=== PATIENT | female | born 1990 | race Hispanic/Latino ===

== ENCOUNTER 2018-01-31 06:31 | Emergency (ER) | payer SELFPAY ==
--- NOTE | 2018-01-31 06:40 | EDPHYS ---
Physician Documentation [facility] Name: Jeanne Pascual Age: 28 yrs Sex: Female : 1990 Arrival Date: 01/31/2018 Time: 06:32 Bed 8 Private MD: ED Physician Charli Mckee HPI: 01/31 06:45 This 28 yrs old Female presents to ER via Ambulatory with complaints of Ear snw Pain, Jaw Pain. 06:45 The patient presents with pain, that is acute. The complaints affect the right ear, snw right caodaism and right jaw. Onset: The symptoms/episode began/occurred suddenly, 4 day(s) ago, and became worse and became persistent. Modifying factors: The symptoms are alleviated by nothing, the symptoms are aggravated by touching. Associated signs and symptoms: Pertinent negatives: fever, lightheadedness, nausea, sore throat. Severity of symptoms: At their worst the symptoms were moderate in the emergency department the symptoms are unchanged. It is unknown whether or not the patient has had similar symptoms in the past. It is unknown whether or not the patient has recently seen a physician. encouraged to f/u with dentist RENATE. 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 - Social history:: Smoking status: Patient/guardian denies using tobacco, Patient/guardian denies using alcohol, street drugs. - Ebola Screening: : No symptoms or risks identified at this time. ROS: 06:43 Constitutional: Negative for fever, chills, and weight loss, Eyes: Negative for injury, snw pain, redness, and discharge, Neck: Negative for injury, pain, and swelling, Cardiovascular: Negative for chest pain, palpitations, and edema, Respiratory: Negative for shortness of breath, cough, wheezing, and pleuritic chest pain, Abdomen/GI: Negative for abdominal pain, nausea, vomiting, diarrhea, and constipation, Back: Negative for injury and pain, : Negative for injury, bleeding, discharge, and swelling, MS/Extremity: Negative for injury and deformity, Skin: Negative for injury, rash, and discoloration, Psych: Negative for depression, anxiety, suicide ideation, homicidal ideation, and hallucinations. 06:43 ENT: Positive for ear pain, right jaw pain. 06:43 Neuro: Positive for headache. Exam: 06:42 Constitutional: This is a well developed, well nourished patient who is awake, alert, snw and in no acute distress. Eyes: Pupils equal round and reactive to light, extra-ocular motions intact. Lids and lashes normal. Conjunctiva and sclera are non-icteric and not injected. Cornea within normal limits. Periorbital areas with no swelling, redness, or edema. Neck: Trachea midline, no thyromegaly or masses palpated, and no cervical lymphadenopathy. Supple, full range of motion without nuchal rigidity, or vertebral point tenderness. No Meningismus. Chest/axilla: Normal chest wall appearance and motion. Nontender with no deformity. No lesions are appreciated. Cardiovascular: Regular rate and rhythm with a normal S1 and S2. No gallops, murmurs, or rubs. Normal PMI, no JVD. No pulse deficits. Respiratory: Lungs have equal breath sounds bilaterally, clear to auscultation and percussion. No rales, rhonchi or wheezes noted. No increased work of breathing, no retractions or nasal flaring. Abdomen/GI: Soft, non-tender, with normal bowel sounds. No distension or tympany. No guarding or rebound. No evidence of tenderness throughout. Back: No spinal tenderness. No costovertebral tenderness. Full range of motion. Skin: Warm, dry with normal turgor. Normal color with no rashes, no lesions, and no evidence of cellulitis. MS/ Extremity: Pulses equal, no cyanosis. Neurovascular intact. Full, normal range of motion. Neuro: Awake and alert, GCS 15, oriented to person, place, time, and situation. Cranial nerves II-XII grossly intact. Motor strength 5/5 in all extremities. Sensory grossly intact. Cerebellar exam normal. Normal gait. 06:42 Head/face: Noted is tenderness, that is moderate, of the lower right third molar. 06:42 ENT: TM's: are normal, Nose: is normal, Mouth: is normal, Dental exam: impacted appearing right wisdom tooth with caries and tenderness. Vital Signs: 06:42 BP 130 / 76; Pulse 78; Resp 18 S; Temp 98.8(O); Pulse Ox 98% on R/A; Weight 81.65 kg bb (R); Height 5 ft. 1 in. (154.94 cm) (R); Pain 10/10; 06:42 Body Mass Index 34.01 (81.65 kg, 154.94 cm) bb MDM: 06:38 Patient medically screened. snw 06:44 Data reviewed: vital signs, nurses notes. Data interpreted: Pulse oximetry: on room air snw is 98 %. Interpretation: normal. Counseling: I had a detailed discussion with the patient and/or guardian regarding: the historical points, exam findings, and any diagnostic results supporting the discharge/admit diagnosis, the presence of at least one elevated blood pressure reading (>120/80) during this emergency department visit, the need for outpatient follow up, to return to the emergency department if symptoms worsen or persist or if there are any questions or concerns that arise at home. Special discussion: Based on the history and exam findings, there is no indication for further emergent testing or inpatient evaluation. I discussed with the patient/guardian the need to see a dentist for further evaluation of the symptoms. I discussed with the patient/guardian the need to see the primary care provider for further evaluation of the symptoms. Administered Medications: 06:50 Drug: Clindamycin 600 mg Route: IM; Site: right gluteus; ea 07:07 Follow up: Response: No adverse reaction ea 06:50 Drug: [place] 5 mg-325 mg 1 tabs Route: PO; ea 07:07 Follow up: Response: No adverse reaction; Pain is decreased ea Disposition: 19:10 Co-signature as Attending Physician, Charli Mckee MD. Disposition: 01/31/18 06:39 Discharged to Home. Impression: Jaw pain, Dental caries, unspecified. - Condition is Stable. - Discharge Instructions: Dental Caries, Adult, Dental Pain, Diet and Dental Disease, Heat Therapy, Dental Extraction, Care After. - Prescriptions for Clindamycin HCl 150 mg Oral Capsule - take 1 capsule by ORAL route every 6 hours for 10 days; 40 capsule. Diclofenac Sodium 75 mg Oral Tablet Sustained Release - take 1 tablet by ORAL route 2 times per day; 30 tablet. - Medication Reconciliation Form, Thank You Letter, Antibiotic Education, Prescription Opioid Use, Work release form form. - Follow up: Private Physician; When: Today; Reason: Recheck today's complaints, Continuance of care, Re-evaluation by your physician. Follow up: Emergency Department; When: As needed; Reason: Worsening of condition. Signatures: Supriya Cardoza, MINE SAFETY ENGINEER-C MINE SAFETY ENGINEER-Csnw Leticia Mccallum RN RN bb Antunez, Elena, RN RN ea Starr, Gregory, MD MD gs Corrections: (The following items were deleted from the chart) 07:10 06:39 01/31/2018 06:39 Discharged to Home. Impression: Jaw pain; Dental caries, ea unspecified. Condition is Stable. Forms are Medication Reconciliation Form, Thank You Letter, Antibiotic Education, Prescription Opioid Use. Follow up: Private Physician; When: Today; Reason: Recheck today's complaints, Continuance of care, Re-evaluation by your physician. Follow up: Emergency Department; When: As needed; Reason: Worsening of condition. snw
[2018-01-31] MEDS ORDERED: HYDROCODONE/APAP 5/325 MG TAB ONE (06:45)
[2018-01-31] MEDS ORDERED: CLINDAMYCIN 600MG/D5W 600 MG/50 ML BAG IV ONE (06:47)
--- NOTE | 2018-01-31 07:11 | ER ---
Nurse's Notes [facility] Name: Jeanne Pascual Age: 28 yrs Sex: Female : 1990 Arrival Date: 01/31/2018 Time: 06:32 Bed 8 Private MD: Diagnosis: Jaw pain;Dental caries, unspecified Presentation: 01/31 06:40 Presenting complaint: Patient states: she is having right sided jaw-pain radiating to bb her right ear since Wednesday denies any trauma. Transition of care: patient was not received from another setting of care. Onset of symptoms was January 28, 2018. Risk Assessment: Do you want to hurt yourself or someone else? Patient reports no desire to harm self or others. Initial Sepsis Screen: Does the patient meet any 2 criteria? No. Patient's initial sepsis screen is negative. Does the patient have a suspected source of infection? No. Patient's initial sepsis screen is negative. Care prior to arrival: None. 06:40 Method Of Arrival: Ambulatory bb 06:40 Acuity: ANGELA 5 bb Triage Assessment: 06:47 General: Appears in no apparent distress. Behavior is calm, cooperative. Pain: ak1 Complains of pain in right jaw and right pentecostal and right ear and lower right third molar and mouth. EENT: Reports pain in ear that radiates to jaw. Neuro: Level of Consciousness is awake, alert, obeys commands, Oriented to person, place, time, situation, Seafood Clerk are equal bilaterally Moves all extremities. Gait is steady, Speech is normal, Facial symmetry appears normal. Cardiovascular: No deficits noted. Respiratory: No deficits noted. GI: No signs and/or symptoms were reported involving the gastrointestinal system. : No signs and/or symptoms were reported regarding the genitourinary system. Derm: No signs and/or symptoms reported regarding the dermatologic system. Musculoskeletal: No signs and/or symptoms reported regarding the musculoskeletal system. 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 - Social history:: Smoking status: Patient/guardian denies using tobacco, Patient/guardian denies using alcohol, street drugs. - Ebola Screening: : No symptoms or risks identified at this time. Screenin:46 Abuse screen: Denies threats or abuse. Denies injuries from another. Nutritional ak1 screening: No deficits noted. Tuberculosis screening: No symptoms or risk factors identified. Fall Risk Assessment: 06:48 Reassessment: Patient appears in no apparent distress at this time. No changes from ak1 previously documented assessment. see triage assessment. 06:57 Reassessment: Patient and/or family updated on plan of care and expected duration. Pain ea level reassessed. Patient is alert, oriented x 3, equal unlabored respirations, skin warm/dry/pink. Awaiting on shot time. 07:05 Reassessment: Patient and/or family updated on plan of care and expected duration. Pain ea level reassessed. Patient is alert, oriented x 3, equal unlabored respirations, skin warm/dry/pink. Discharge instructions given to patient verbalized the understanding of instructions given to patient. Vital Signs: 06:42 BP 130 / 76; Pulse 78; Resp 18 S; Temp 98.8(O); Pulse Ox 98% on R/A; Weight 81.65 kg bb (R); Height 5 ft. 1 in. (154.94 cm) (R); Pain 10/10; 06:42 Body Mass Index 34.01 (81.65 kg, 154.94 cm) bb ED Course: 06:32 Patient arrived in ED. ds1 06:32 [facility] snw 06:32 Charli Mckee MD is Attending Physician. snw 06:41 Triage completed. bb 06:42 Arm band placed on Patient placed in an exam room, on a stretcher, on pulse oximetry. bb Family accompanied patient. 06:46 Patient has correct armband on for positive identification. Bed in low position. Call ak1 light in reach. Side rails up X 1. Pulse ox on. NIBP on. 06:46 No provider procedures requiring assistance completed. Patient did not have IV access ak1 during this emergency room visit. 06:49 Awaiting: shot time. ak1 Administered Medications: 06:50 Drug: Clindamycin 600 mg Route: IM; Site: right gluteus; ea 07:07 Follow up: Response: No adverse reaction ea 06:50 Drug: [place] 5 mg-325 mg 1 tabs Route: PO; ea 07:07 Follow up: Response: No adverse reaction; Pain is decreased ea Outcome: 06:39 Discharge ordered by MD. crawford 07:06 Condition: good ea 07:06 Discharge instructions given to patient, Instructed on discharge instructions, follow up and referral plans. medication usage, Demonstrated understanding of instructions, follow-up care, medications, Prescriptions given X 2. 07:10 Discharged to home ambulatory, with significant other. ea 07:10 Patient left the ED. ea Signatures: Supriya Cardoza, LEAD ENGINEER-C LEAD ENGINEER-Csnw Wendy Eric ds1 Leticia Mccallum RN RN Carleen Lazo RN RN ak1 Shirin Aden RN RN ea
[2018-01-31 07:15] VITALS: BP 130/76; TEMP 98.8; O2SAT 98
== END 2018-01-31 07:10 | disposition home or self-care (01) ==
LOC: ER 06:31
DX: R68.84 Jaw pain (principal); K02.9 Dental caries, unspecified; Z88.1 Allergy status to other antibiotic agents
CPT/HCPCS: 96372; 99283

== ENCOUNTER 2018-04-12 19:57 | Emergency (ER) | payer SELFPAY ==
[2018-04-12 22:11] LABS: Absolute Lymphocytes (CBC) 2.1 K/uL (0.7-4.9); Absolute Monocytes 0.4 K/uL (0.1-1.3); Absolute Neutrophil 4.5 K/uL (1.8-8.0); Basophils % 0.6 % (0-1.3); Eosinophils % 2.1 % (0-4.4); Hematocrit 38.2 % (36.0-45.0); Lymphocytes % 28.7 % (15.3-44.8); MCH 31.2 pg (27.0-35.0); MCV 88.6 fL (80-100); Monocytes % 6.1 % (3.3-12.3); RBC Red Blood Cell Count 4.32 M/uL (3.86-4.86)
[2018-04-12 22:11] LABS: Urine Blood TRACE (NEG); Urine Glucose NEGATIVE (NEG); Urine Protein NEGATIVE (NEG); Urine pH 5.5 (5.0-7.0)
[2018-04-12 22:16] LABS: Urine Bacteria <20 /HPF (<20); Urine Culture Reflex Order NOT NEEDED; Urine RBC <5 /HPF (NONE SEEN)
[2018-04-12 22:28] LABS: ALT/SGPT 34 U/L (12-78); AST/SGOT 16 U/L (15-37); Albumin 3.7 g/dL (3.4-5.0); Alkaline Phosphatase 99 U/L (45-117); BUN Blood Urea Nitrogen 11 mg/dL (7-18); Bicarbonate 25 mmol/L (21-32); Bilirubin Direct 0.1 mg/dL (0-0.2); Bilirubin Total 0.3 mg/dL (0.2-1.0); Glucose Level 108 mg/dL (74-106); Lipase 190 U/L (73-393); Potassium 3.8 mmol/L (3.5-5.1); Sodium Level 141 mmol/L (136-145)
--- NOTE | 2018-04-13 01:54 | EDPHYS ---
Physician Documentation [facility] Name: Jeanne Pascual Age: 28 yrs Sex: Female : 1990 Arrival Date: 04/12/2018 Time: 20:01 Bed 17 Private MD: ED Physician Emily Ramirez HPI: 04/12 21:21 This 28 yrs old Female presents to ER via Ambulatory with complaints of Back ma2 Pain, Nausea, Diarrhea. 21:21 The patient presents with pain that is acute. Onset: The symptoms/episode ma2 began/occurred gradually, 1 day(s) ago. The pain does not radiate. Associated signs and symptoms: Pertinent positives: chest pain, dysuria, hematuria, bowel incontinence, Pertinent negatives: abdominal pain. Severity of symptoms: At their worst the symptoms were moderate, in the emergency department the symptoms are unchanged. The patient has not experienced similar symptoms in the past. 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 - Social history:: Smoking status: Patient/guardian denies using tobacco, Patient/guardian denies using alcohol, street drugs, The patient lives with family. - Ebola Screening: : Patient denies travel to an Ebola-affected area in the 21 days before illness onset. - Family history:: not pertinent. ROS: 21:21 Constitutional: Negative for fever, chills, and weight loss, Cardiovascular: Negative ma2 for chest pain, palpitations, and edema, : Negative for injury, bleeding, discharge, and swelling, Skin: Negative for injury, rash, and discoloration. 21:21 Abdomen/GI: Positive for abdominal pain. 21:21 Abdomen/GI: Positive for vomiting, Negative for nausea, rectal bleeding, flatulence. 21:21 : Positive for flank pain, Negative for urinary symptoms, vaginal itching, missed period, acute changes. 21:21 All other systems are negative. Exam: 21:21 Constitutional: This is a well developed, well nourished patient who is awake, alert, ma2 and in no acute distress. Head/Face: Normocephalic, atraumatic. ENT: Nares patent. No nasal discharge, no septal abnormalities noted. Tympanic membranes are normal and external auditory canals are clear. Oropharynx with no redness, swelling, or masses, exudates, or evidence of obstruction, uvula midline. Mucous membranes moist. Chest/axilla: Normal chest wall appearance and motion. Nontender with no deformity. No lesions are appreciated. Cardiovascular: Regular rate and rhythm with a normal S1 and S2. No gallops, murmurs, or rubs. Normal PMI, no JVD. No pulse deficits. Respiratory: Lungs have equal breath sounds bilaterally, clear to auscultation and percussion. No rales, rhonchi or wheezes noted. No increased work of breathing, no retractions or nasal flaring. Skin: Warm, dry with normal turgor. Normal color with no rashes, no lesions, and no evidence of cellulitis. MS/ Extremity: Pulses equal, no cyanosis. Neurovascular intact. Full, normal range of motion. Psych: Awake, alert, with orientation to person, place and time. Behavior, mood, and affect are within normal limits. 21:21 Abdomen/GI: Inspection: abdomen appears normal, Palpation: moderate abdominal tenderness, in the right upper quadrant, Indicators: Crowley's sign is positive, Hernia: not appreciated. 21:21 Back: CVA tenderness, that is mild, is noted on the right. 04/13 00:00 Neuro: Orientation: is normal, Mentation: is normal, Motor: is normal, moves all fours, pm1 Gait: is steady, at a normal pace, without difficulty. Vital Signs: 04/12 20:15 BP 136 / 94; Pulse 92; Resp 20; Temp 97.9(TE); Pulse Ox 97% on R/A; Weight 81.65 kg aj1 (R); Height 5 ft. 1 in. (154.94 cm) (R); Pain 7/10; 22:16 BP 114 / 70; Pulse 74; Resp 16 S; Pulse Ox 97% on R/A; jd3 23:10 BP 100 / 55; Pulse 70; Resp 18; Pulse Ox 98% on R/A; mt 23:52 BP 102 / 55; Pulse 74; Resp 16; Pulse Ox 98% on R/A; mt 04/13 00:35 BP 99 / 56; Pulse 72; Resp 19 S; Pulse Ox 97% on R/A; jd3 01:29 BP 99 / 66; Pulse 75; Resp 15 S; Pulse Ox 98% on R/A; jd3 04/12 20:15 Body Mass Index 34.01 (81.65 kg, 154.94 cm) aj1 MDM: 04/12 20:49 Patient medically screened. wi2 21:21 Differential diagnosis: Cholelithiasis chronic back pain, Pyelonephritis sprain. wi2 04/13 01:09 Data reviewed: vital signs. Data interpreted: Pulse oximetry: on room air is 97 %. pm1 Interpretation: normal. 01:09 ED course: Pending Vrad U/S results. pm1 01:52 Counseling: I had a detailed discussion with the patient and/or guardian regarding: the pm1 historical points, exam findings, and any diagnostic results supporting the discharge/admit diagnosis, lab results, radiology results, the need for outpatient follow up, to return to the emergency department if symptoms worsen or persist or if there are any questions or concerns that arise at home. 04/12 21:21 Order name: Basic Metabolic Panel; Complete Time: 23:09 wi2 04/12 21:21 Order name: CBC with Diff; Complete Time: 23:09 wi2 04/12 21:21 Order name: Hepatic Function; Complete Time: 23:09 wi2 04/12 21:21 Order name: Lipase; Complete Time: 23:09 wi2 04/12 21:21 Order name: Urine Microscopic Only; Complete Time: 23:09 wi2 04/12 21:21 Order name: IV Saline Lock; Complete Time: 22:18 wi2 04/12 21:21 Order name: Labs collected and sent; Complete Time: 22:18 wi2 04/12 21:21 Order name: Urine Dipstick-Ancillary (obtain specimen); Complete Time: 22:18 [facility] 04/12 21:21 Order name: US Abdomen Limited [facility] 04/12 21:21 Order name: Test, Serum; Complete Time: 23:09 wi2 04/12 22:02 Order name: Urine Dipstick--Ancillary (enter results) [facility] 04/12 22:02 Order name: Urine --Ancillary (enter results) [facility] Administered Medications: 02:12 Drug: GI Cocktail without - (Maalox Suspension 30 ml, Lidocaine Liquid 2 % 15 jd3 ml) Route: PO; 02:12 Follow up: Response: No adverse reaction jd3 Disposition: 04/13/18 01:53 Discharged to Home. Impression: Unspecified abdominal pain. - Condition is Stable. - Discharge Instructions: Abdominal Pain, Adult. - Prescriptions for Pepcid 20 mg Oral Tablet - take 1 tablet by ORAL route every 12 hours for 10 days; 20 tablet. - Medication Reconciliation Form, Thank You Letter, Antibiotic Education, Prescription Opioid Use, Work release form form. - Follow up: Emergency Department; When: As needed; Reason: Worsening of condition. Follow up: Private Physician; When: 2 - 3 days; Reason: Recheck today's complaints, Continuance of care, Re-evaluation by your physician. - Problem is new. - Symptoms have improved. Signatures: Dispatcher [employer] [facility] Raya Jordan RN RN aj1 Dylan Richards NP CEREAL MILLER pm1 Bandar Huitron RN RN jd3 Emily Ramirez MD MD ma2 Corrections: (The following items were deleted from the chart) 04/12 22:15 21:21 Creatinine for Radiology+C.LAB.BRZ ordered. [facility] 04/13 02:25 01:53 04/13/2018 01:53 Discharged to Home. Impression: Unspecified abdominal pain. jd3 Condition is Stable. Forms are Medication Reconciliation Form, Thank You Letter, Antibiotic Education, Prescription Opioid Use. Follow up: Emergency Department; When: As needed; Reason: Worsening of condition. Follow up: Private Physician; When: 2 - 3 days; Reason: Recheck today's complaints, Continuance of care, Re-evaluation by your physician. Problem is new. Symptoms have improved. pm1
--- NOTE | 2018-04-13 01:54 | ER ---
Nurse's Notes [facility] Name: Jeanne Pascual Age: 28 yrs Sex: Female : 1990 Arrival Date: 04/12/2018 Time: 20:01 Bed 17 Private MD: Diagnosis: Unspecified abdominal pain Presentation: 04/12 20:13 Presenting complaint: Patient states: She's been having back pain since yesterday aj1 morning, and now the pain is wrapping around to her right side. Patient also reports diarrhea, a temperature of 99.1 and vomiting once this morning. Patient reports urinary frequency, denies dysuria. Transition of care: patient was not received from another setting of care. Onset of symptoms was April 11, 2018. Risk Assessment: Do you want to hurt yourself or someone else? Patient reports no desire to harm self or others. Initial Sepsis Screen: Does the patient meet any 2 criteria? No. Patient's initial sepsis screen is negative. Does the patient have a suspected source of infection? No. Patient's initial sepsis screen is negative. Care prior to arrival: None. 20:13 Method Of Arrival: Ambulatory aj1 20:13 Acuity: ANGELA 3 aj1 Triage Assessment: 20:15 General: Appears in no apparent distress. uncomfortable, Behavior is calm, cooperative, aj1 appropriate for age. Pain: Complains of pain in back and anterior aspect of right lateral abdomen Pain currently is 7 out of 10 on a pain scale. Neuro: Level of Consciousness is awake, alert, obeys commands. Cardiovascular: Patient's skin is warm and dry. Respiratory: Airway is patent Respiratory effort is even, unlabored, Respiratory pattern is regular, symmetrical. Musculoskeletal: Range of motion: intact in all extremities. 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 - Social history:: Smoking status: Patient/guardian denies using tobacco, Patient/guardian denies using alcohol, street drugs, The patient lives with family. - Ebola Screening: : Patient denies travel to an Ebola-affected area in the 21 days before illness onset. - Family history:: not pertinent. Screenin:58 Abuse screen: Denies threats or abuse. Nutritional screening: No deficits noted. jd3 Tuberculosis screening: No symptoms or risk factors identified. Fall Risk Ambulatory Aid- None/Bed Rest/Nurse Assist (0 pts). Gait- Normal/Bed Rest/Wheelchair (0 pts) Mental Status- Oriented to own ability (0 pts). Total Kowalski Fall Scale indicates No Risk (0-24 pts). Assessment: 20:59 General: Appears in no apparent distress. uncomfortable, Behavior is calm, cooperative, jd3 appropriate for age. Pain: Complains of pain in back Pain radiates to abdomen Quality of pain is described as sharp, Is continuous, Also complains of nausea. Neuro: Level of Consciousness is awake, alert, obeys commands, Oriented to person, place, time, situation, Appropriate for age. Cardiovascular: Capillary refill < 3 seconds Patient's skin is warm and dry. Respiratory: Airway is patent Respiratory effort is even, unlabored, Respiratory pattern is regular, symmetrical. GI: Abdomen is round non-distended, Bowel sounds present X 4 quads. Abd is soft and non tender X 4 quads. Reports diarrhea, nausea, vomiting. : Reports urgency. EENT: No signs and/or symptoms were reported regarding the EENT system. Derm: Skin is intact, Skin is dry, Skin is normal, Skin temperature is warm. Musculoskeletal: Circulation, motion, and sensation intact. Range of motion: intact in all extremities. 22:16 Reassessment: Patient appears in no apparent distress at this time. Patient and/or jd3 family updated on plan of care and expected duration. Pain level reassessed. Patient is alert, oriented x 3, equal unlabored respirations, skin warm/dry/pink. 04/13 00:34 Reassessment: Patient appears in no apparent distress at this time. Patient and/or jd3 family updated on plan of care and expected duration. Pain level reassessed. Patient is alert, oriented x 3, equal unlabored respirations, skin warm/dry/pink. 01:29 Reassessment: Patient appears in no apparent distress at this time. Patient and/or jd3 family updated on plan of care and expected duration. Pain level reassessed. Patient is alert, oriented x 3, equal unlabored respirations, skin warm/dry/pink. 02:24 Reassessment: Patient appears in no apparent distress at this time. Patient and/or jd3 family updated on plan of care and expected duration. Pain level reassessed. Patient is alert, oriented x 3, equal unlabored respirations, skin warm/dry/pink. Vital Signs: 04/12 20:15 BP 136 / 94; Pulse 92; Resp 20; Temp 97.9(TE); Pulse Ox 97% on R/A; Weight 81.65 kg aj1 (R); Height 5 ft. 1 in. (154.94 cm) (R); Pain 7/10; 22:16 BP 114 / 70; Pulse 74; Resp 16 S; Pulse Ox 97% on R/A; jd3 23:10 BP 100 / 55; Pulse 70; Resp 18; Pulse Ox 98% on R/A; mt 23:52 BP 102 / 55; Pulse 74; Resp 16; Pulse Ox 98% on R/A; mt 04/13 00:35 BP 99 / 56; Pulse 72; Resp 19 S; Pulse Ox 97% on R/A; jd3 01:29 BP 99 / 66; Pulse 75; Resp 15 S; Pulse Ox 98% on R/A; jd3 04/12 20:15 Body Mass Index 34.01 (81.65 kg, 154.94 cm) aj1 ED Course: 04/12 20:01 Patient arrived in ED. ds1 20:14 Triage completed. aj1 20:15 Arm band placed on Patient placed in waiting room, Patient notified of wait time. aj1 20:49 Emily Ramirez MD is Attending Physician. ma2 20:52 Bandar Huitron RN is Primary Nurse. jd3 20:59 Patient has correct armband on for positive identification. Bed in low position. Call jd3 light in reach. Side rails up X 1. Adult w/ patient. 21:47 US Abdomen Limited In Process Unspecified. EDMS 21:52 Dylan Richards NP is PHCP. pm1 22:02 Inserted saline lock: 20 gauge in right antecubital area, using aseptic technique. jd3 Blood collected. placed by Shirin DAVIES. 04/13 02:23 No provider procedures requiring assistance completed. IV discontinued, intact, jd3 bleeding controlled, No redness/swelling at site. Pressure dressing applied. Administered Medications: 02:12 Drug: GI Cocktail without - (Maalox Suspension 30 ml, Lidocaine Liquid 2 % 15 jd3 ml) Route: PO; 02:12 Follow up: Response: No adverse reaction jd3 Outcome: 01:53 Discharge ordered by . pm1 02:24 Discharged to home ambulatory. jd3 02:24 Condition: stable 02:24 Discharge instructions given to patient, Instructed on discharge instructions, follow up and referral plans. medication usage, Demonstrated understanding of instructions, follow-up care, medications, Prescriptions given X 1. 02:25 Patient left the ED. jd3 Signatures: Dispatcher [employer] EDMS Raya Jordan RN RN aj1 Wendy Eric ds1 Dylan Richards, AMITA TIMBER MANAGEMENT ASSISTANT pm1 Peace Jeffrey mt, Jonathon, RN RN jd3 Emily Ramirez MD MD ma2 Corrections: (The following items were deleted from the chart) 04/12 22:23 22:02 Inserted saline lock: 20 gauge in right antecubital area, using aseptic jd3 technique. Blood collected. jd3
[2018-04-13] MEDS ORDERED: LIDOCAINE VISCOUS 2% SOLN 15 ML UDC ONE (02:12)
[2018-04-13] MEDS ORDERED: MAGNES/ALUMIN/SIMET 30ML UCUP ONE (02:14)
[2018-04-13 02:29] VITALS: TEMP 97.9
[2018-04-13 02:35] VITALS: BP 99/66; O2SAT 98
--- NOTE | 2018-04-13 06:41 | RAD REPORT ---
EXAM DESCRIPTION: US - Abdomen Exam Limited - 04/12/2018 9:46 pm CLINICAL HISTORY: Abdominal pain, right upper quadrant pain A preliminary report was provided at the time of the study and reviewed prior to final report. COMPARISON: CT study April 2017 FINDINGS: Gallbladder is contracted. Patient was not fasting for the examination. No gross evidence for gallstones or sludge. There is no true wall thickening suspected or pericholecystic fluid. No common duct stone or biliary tree dilatation identified. IMPRESSION: Contracted gallbladder in a nonfasting patient. No stones or sludge identified. No biliary tree dilatation. If the patient remains symptomatic, repeat examination can be performed at a time when the patient is fully fasting.
== END 2018-04-13 02:25 | disposition home or self-care (01) ==
LOC: ER 19:57
DX: R10.9 Unspecified abdominal pain (principal); Z88.1 Allergy status to other antibiotic agents; Z85.41 Personal history of malignant neoplasm of cervix uteri
CPT/HCPCS: 36415; 76705; 80048; 80076; 81003; 81015; 81025; 83690; 84703; 85025; 99284

== ENCOUNTER 2018-10-06 09:32 | Emergency (ER) | payer SELFPAY ==
[2018-10-06] MEDS ORDERED: IPRATROPIUM BROM 0.5MG/2.5ML ONE (10:18)
[2018-10-06] MEDS ORDERED: ALBUTEROL 2.5 MG/3 ML NEB SOL ONE (10:18)
--- NOTE | 2018-10-06 11:05 | EDPHYS ---
Physician Documentation [facility] Name: Jeanne Pascual Age: 28 yrs Sex: Female : 1990 Arrival Date: 10/06/2018 Time: 09:34 Bed 12 Private MD: ED Physician Raymundo Montoya HPI: 10/06 11:01 This 28 yrs old Female presents to ER via Ambulatory with complaints of Cough, kb Wheezing > 1 Year, Ear Pain. 11:01 The patient or guardian reports cough, that is intermittent, described as moderate, kb with productive sputum. Onset: The symptoms/episode began/occurred 4 day(s) ago. Severity of symptoms: At their worst the symptoms were moderate, in the emergency department the symptoms are unchanged. Modifying factors: The symptoms are alleviated by nothing, the symptoms are aggravated by nothing. Associated signs and symptoms: Pertinent positives: earache, sore throat, Pertinent negatives: chest pain, diarrhea, fever, nausea, rhinorrhea, vomiting. The patient has not experienced similar symptoms in the past. The patient has not recently seen a physician. Pt reports she started having a "scratchy" throat on Wednesday, cough started 2 days ago. Also reports left ear pain and fullness. 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 Denies fever. . Historical: - Allergies: 09:51 Bactrim; ss - PMHx: 09:51 cervical cancer; Migraines; Ovarian cyst; ss - Immunization history:: Adult Immunizations up to date. - Social history:: Smoking status: Patient/guardian denies using tobacco. - Ebola Screening: : Patient denies exposure to infectious person Patient denies travel to an Ebola-affected area in the 21 days before illness onset. ROS: 10:55 Constitutional: Negative for fever, chills, and weight loss, Neck: Negative for injury, kb pain, and swelling, Cardiovascular: Negative for chest pain, palpitations, and edema, Abdomen/GI: Negative for abdominal pain, nausea, vomiting, diarrhea, and constipation, Back: Negative for injury and pain, : Negative for injury, bleeding, discharge, and swelling, MS/Extremity: Negative for injury and deformity, Skin: Negative for injury, rash, and discoloration. 10:55 ENT: Positive for ear pain, sore throat. 10:55 Respiratory: Positive for cough, wheezing, Negative for dyspnea on exertion, hemoptysis, orthopnea, pleurisy, shortness of breath. Exam: 10:55 Constitutional: This is a well developed, well nourished patient who is awake, alert, kb and in no acute distress. Head/Face: Normocephalic, atraumatic. ENT: Nares patent. No nasal discharge, no septal abnormalities noted. Tympanic membranes are normal and external auditory canals are clear. Oropharynx with no redness, swelling, or masses, exudates, or evidence of obstruction, uvula midline. Mucous membranes moist. Neck: Trachea midline, no thyromegaly or masses palpated, and no cervical lymphadenopathy. Supple, full range of motion without nuchal rigidity, or vertebral point tenderness. No Meningismus. Chest/axilla: Normal chest wall appearance and motion. Nontender with no deformity. No lesions are appreciated. Cardiovascular: Regular rate and rhythm with a normal S1 and S2. No gallops, murmurs, or rubs. Normal PMI, no JVD. No pulse deficits. Abdomen/GI: Soft, non-tender, with normal bowel sounds. No distension or tympany. No guarding or rebound. No evidence of tenderness throughout. Back: No spinal tenderness. No costovertebral tenderness. Full range of motion. Skin: Warm, dry with normal turgor. Normal color with no rashes, no lesions, and no evidence of cellulitis. MS/ Extremity: Pulses equal, no cyanosis. Neurovascular intact. Full, normal range of motion. Neuro: Awake and alert, GCS 15, oriented to person, place, time, and situation. Cranial nerves II-XII grossly intact. Motor strength 5/5 in all extremities. Sensory grossly intact. Cerebellar exam normal. Normal gait. 10:55 Respiratory: the patient does not display signs of respiratory distress, Respirations: normal, Breath sounds: wheezing: expiratory that is mild, is heard in the left posterior lower lobe. Vital Signs: 09:49 BP 142 / 77; Pulse 110; Resp 16; Temp 97.8(TE); Pulse Ox 99% on R/A; Weight 86.18 kg; ss Height 5 ft. 1 in. (154.94 cm); Pain 7/10; 09:49 Body Mass Index 35.90 (86.18 kg, 154.94 cm) MDM: 09:58 Patient medically screened. kb 10:57 Data reviewed: vital signs, nurses notes. Data interpreted: Pulse oximetry: on room air kb is 99 %. Interpretation: normal. Test interpretation: by ED physician or midlevel provider: plain radiologic studies. Counseling: I had a detailed discussion with the patient and/or guardian regarding: the historical points, exam findings, and any diagnostic results supporting the discharge/admit diagnosis, lab results, radiology results, the need for outpatient follow up, a family practitioner, to return to the emergency department if symptoms worsen or persist or if there are any questions or concerns that arise at home. ED course: Chest x-ray interpreted by me. No consolidation or other acute finding noted. 10/06 10:04 Order name: Flu; Complete Time: 10:40 kb 10/06 10:04 Order name: Strep; Complete Time: 10:40 kb 10/06 10:04 Order name: Chest Pa And Lat (2 Views) XRAY; Complete Time: 13:06 kb 10/06 10:40 Order name: Throat Culture EDMS Administered Medications: 10:25 Drug: DuoNeb (3:1) (2.5 mg - 0.5 mg) 3 ml Route: Nebulizer; ph 10:33 Follow up: Response: No adverse reaction; Wheezing diminished ph Disposition: 11:39 Co-signature as Attending Physician, Raymundo Montoya MD I agree with the assessment and kdr plan of care. Disposition: 10/06/18 11:04 Discharged to Home. Impression: Acute bronchitis. - Condition is Stable. - Discharge Instructions: Acute Bronchitis, [id number]. - Work release form, Medication Reconciliation Form, Thank You Letter, Antibiotic Education, Prescription Opioid Use form. - Follow up: Emergency Department; When: As needed; Reason: Worsening of condition. Follow up: Private Physician; When: 2 - 3 days; Reason: Recheck today's complaints, Continuance of care, Re-evaluation by your physician. Signatures: Dispatcher [employer] EDMS Nani Hdz, SHAMPOOER-C JAMIE-Raymundo Rendon MD MD kdr Smirch, Shelby, RN RN ss Nola Hennessy RN RN ph Corrections: (The following items were deleted from the chart) 11:02 10:55 ENT: Positive for sore throat, kb kb 11:02 11:01 Pt reports she started having a "scratchy" throat on Wednesday, cough started 2 days kb ago. 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 Denies fever. . kb 11:16 11:04 10/06/2018 11:04 Discharged to Home. Impression: Acute bronchitis. Condition is ss Stable. Forms are Medication Reconciliation Form, Thank You Letter, Antibiotic Education, Prescription Opioid Use. Follow up: Emergency Department; When: As needed; Reason: Worsening of condition. Follow up: Private Physician; When: 2 - 3 days; Reason: Recheck today's complaints, Continuance of care, Re-evaluation by your physician. kb
--- NOTE | 2018-10-06 11:05 | ER ---
Nurse's Notes [facility] Name: Jeanne Pascual Age: 28 yrs Sex: Female : 1990 Arrival Date: 10/06/2018 Time: 09:34 Bed 12 Private MD: Diagnosis: Acute bronchitis Presentation: 10/06 09:50 Presenting complaint: Patient states: itchy throat x 1 week, cough x 3 days, nose ss bleeds, L ear pain and body aches that began yesterday. Transition of care: patient was not received from another setting of care. Onset of symptoms was September 29, 2018. Risk Assessment: Do you want to hurt yourself or someone else? Patient reports no desire to harm self or others. Initial Sepsis Screen: Does the patient meet any 2 criteria? No. Patient's initial sepsis screen is negative. Does the patient have a suspected source of infection? No. Patient's initial sepsis screen is negative. Care prior to arrival: None. 09:50 Method Of Arrival: Ambulatory ss 09:50 Acuity: ANGELA 4 ss Triage Assessment: 10:45 Respiratory: the patient has mild shortness of breath. ph Historical: - Allergies: 09:51 Bactrim; ss - PMHx: 09:51 cervical cancer; Migraines; Ovarian cyst; ss - Immunization history:: Adult Immunizations up to date. - Social history:: Smoking status: Patient/guardian denies using tobacco. - Ebola Screening: : Patient denies exposure to infectious person Patient denies travel to an Ebola-affected area in the 21 days before illness onset. Screenin:01 Abuse screen: Denies threats or abuse. Denies injuries from another. Nutritional ph screening: No deficits noted. Tuberculosis screening: No symptoms or risk factors identified. Fall Risk None identified. Assessment: 10:00 General: Appears in no apparent distress. comfortable, well groomed, Behavior is calm, ph cooperative, appropriate for age, Denies fever, chills. Pain: Complains of pain in left ear. Neuro: Level of Consciousness is awake, alert, obeys commands, Oriented to person, place, time, situation, Denies weakness dizziness, headache. Cardiovascular: Reports shortness of breath, Denies chest pain, lightheadedness, nausea, vomiting, Capillary refill < 3 seconds in bilateral fingers Patient's skin is warm and dry. Rhythm is regular. Respiratory: Reports shortness of breath on exertion cough that is productive, Airway is patent Respiratory effort is even, unlabored, Respiratory pattern is regular, symmetrical, Breath sounds are clear in left posterior lower lobe, right posterior middle lobe and right posterior lower lobe Breath sounds are coarse in mediastinum Breath sounds with wheezes in mediastinum. GI: No signs and/or symptoms were reported involving the gastrointestinal system. Patient currently denies abdominal pain, diarrhea, nausea, vomiting. EENT: Reports nasal discharge that is watery also reports intermittent nose bleed since yesterday pain in left ear Denies pain when swallowing. Derm: Skin is intact, is healthy with good turgor, Skin is pink, warm \T\ dry. Musculoskeletal: Circulation, motion, and sensation intact. Range of motion: intact in all extremities. 10:33 Reassessment: Patient appears in no apparent distress at this time. Patient and/or ph family updated on plan of care and expected duration. Pain level reassessed. Patient is alert, oriented x 3, equal unlabored respirations, skin warm/dry/pink. Pt reports that SOB has improved after neb tx, taken by wheelchair for CXR. Vital Signs: 09:49 BP 142 / 77; Pulse 110; Resp 16; Temp 97.8(TE); Pulse Ox 99% on R/A; Weight 86.18 kg; ss Height 5 ft. 1 in. (154.94 cm); Pain 7/10; 09:49 Body Mass Index 35.90 (86.18 kg, 154.94 cm) ED Course: 09:34 Patient arrived in ED. as 09:51 Triage completed. ss 09:51 Arm band placed on right wrist. ss 09:55 Nola Hennessy, SAMSON is Primary Nurse. ph 09:58 Nani Hdz FNP-C is PHCP. kb 09:58 Raymundo Montoya MD is Attending Physician. kb 10:36 X-ray completed. Patient tolerated procedure well. Patient moved to radiology via sw wheelchair. Patient moved back from radiology. 10:37 Chest Pa And Lat (2 Views) XRAY In Process Unspecified. EDMS 10:45 Patient has correct armband on for positive identification. Bed in low position. Call light in reach. Side rails up X 1. 10:45 No provider procedures requiring assistance completed. Patient did not have IV access ph during this emergency room visit. Administered Medications: 10:25 Drug: DuoNeb (3:1) (2.5 mg - 0.5 mg) 3 ml Route: Nebulizer; ph 10:33 Follow up: Response: No adverse reaction; Wheezing diminished ph Outcome: 11:04 Discharge ordered by MD. jama 11:16 Discharged to home ambulatory, with family. ss 11:16 Condition: good 11:16 Discharge instructions given to patient, family, Instructed on discharge instructions, follow up and referral plans. Demonstrated understanding of instructions, follow-up care. 11:16 Patient left the ED. ss Signatures: Dispatcher [employer] EDMS Nani Hdz, JAMIE-C JAMIE-Sydnee Singleton Shelby, RN RN Nola Hennessy RN RN Kim Leiva
--- NOTE | 2018-10-06 11:20 | RAD REPORT ---
EXAM DESCRIPTION: Rachel Barnes (2 Views)10/06/2018 10:38 am CLINICAL HISTORY: Cough COMPARISON: August 2017 FINDINGS: The lungs appear clear of acute infiltrate. The heart is normal size IMPRESSION: No acute abnormalities displayed
[2018-10-06 11:27] VITALS: BP 142/77; TEMP 97.8; O2SAT 99
== END 2018-10-06 11:16 | disposition home or self-care (01) ==
LOC: ER 09:32
DX: J20.9 Acute bronchitis, unspecified (principal); C53.9 Malignant neoplasm of cervix uteri, unspecified
CPT/HCPCS: 71046; 87070; 87081; 87804; 94640; 99284

== ENCOUNTER 2019-08-04 08:37 | Emergency (ER) | payer SELFPAY ==
[2019-08-04 09:19] LABS: Absolute Lymphocytes (CBC) 1.5 K/uL (0.7-4.9); Basophils % 0.7 % (0-1.3); Hematocrit 38.4 % (36.0-45.0); Lymphocytes % 22.4 % (15.3-44.8); MPV 8.6 fL (7.6-11.3)
[2019-08-04 09:54] LABS: Urine Blood TRACE (NEG); Urine Glucose NEGATIVE (NEG); Urine Protein NEGATIVE (NEG)
[2019-08-04 09:58] LABS: Albumin 3.6 g/dL (3.4-5.0); Bilirubin Direct 0.1 mg/dL (0-0.2); Bilirubin Total 0.5 mg/dL (0.2-1.0); Potassium 3.8 mmol/L (3.5-5.1); Protein, Total 6.9 g/dL (6.4-8.2); Thyroid Stimulating Hormone 1.77 uIU/mL (0.360-3.740)
--- NOTE | 2019-08-04 10:20 | RAD REPORT ---
EXAM DESCRIPTION: CTAbdomen Pelvis W Contrast - 08/04/2019 10:10 am CLINICAL HISTORY: Abdominal pain. ABD PAIN COMPARISON: Abdomen Pelvis W Contrast dated 07/22/2016; Abdomen Pelvis W Contrast dated 12/02/2015 ; CT ABD PELVIS W CONTRAST dated 08/05/2015; CT ABD PELVIS W CONTRAST dated 06/14/2015 TECHNIQUE: Biphasic CT imaging of the abdomen and pelvis was performed with 100 ml non-ionic IV cont rast. All CT scans are performed using dose optimization technique as appropriate and may include automated exposure control or mA/KV adjustment according to patient size. FINDINGS: The lung bases are clear. The liver, spleen, pancreas, adrenal glands and kidneys are within normal limits. No bowel obstruction, free air, free fluid or abscess. The appendix is normal. No evidence of signi ficant lymphadenopathy. No suspicious bony findings. IMPRESSION: No acute intra-abdominal or pelvic finding.
--- NOTE | 2019-08-04 10:49 | RAD REPORT ---
EXAM DESCRIPTION: RAD - Chest Pa And Lat (2 Views) - 08/04/2019 10:41 am CLINICAL HISTORY: DYSPNEA Chest pain. COMPARISON: Chest Pa And Lat (2 Views) dated 10/06/2018; Chest Pa And Lat (2 Views) dated 08/27/2017; Chest Pa And Lat (2 Views) dated 06/08/2017; Chest Single View dated 11/04/2016 FINDINGS: The lungs are clear. The heart is normal in size. No displaced fractures. IMPRESSION: No acute or concerning finding suspected.
--- NOTE | 2019-08-04 11:13 | ER ---
Nurse's Notes [facility] Name: Jeanne Pascual Age: 29 yrs Sex: Female : 1990 Arrival Date: 08/04/2019 Time: 08:40 Bed 20 Private MD: Diagnosis: Radiculopathy;Lower abdominal pain, unspecified Presentation: 08/04 09:00 Presenting complaint: Right sided abdominal pain since yesterday, right shoulder pain hb with radiation and tingling to arms x 3 days, SOB on exertion x 3 months. Transition of care: patient was not received from another setting of care. Onset of symptoms was August 04, 2019. Risk Assessment: Do you want to hurt yourself or someone else? Patient reports no desire to harm self or others. Initial Sepsis Screen: Does the patient meet any 2 criteria? No. Patient's initial sepsis screen is negative. Does the patient have a suspected source of infection? No. Patient's initial sepsis screen is negative. Care prior to arrival: None. 09:00 Method Of Arrival: Ambulatory hb 09:00 Acuity: ANGELA 3 hb Triage Assessment: 09:04 General: Appears in no apparent distress. obese, well groomed, Behavior is cooperative, tw2 appropriate for age. Pain: Complains of pain in abdomen. GI: Reports lower abdominal pain, upper abdominal pain. KNOCK OUT HAND: 09:07 LMP N/A - tw2 Historical: - Allergies: 09:03 Bactrim; hb - PMHx: 09:03 Migraines; Ovarian cyst; cervical cancer; hb - PSHx: 09:03 LEEP; ; hb - Immunization history:: Adult Immunizations up to date. - Social history:: Smoking status: Patient denies any tobacco usage or history of. - Ebola Screening: : No symptoms or risks identified at this time. Screenin:07 Abuse screen: Denies threats or abuse. Nutritional screening: No deficits noted. tw2 Tuberculosis screening: No symptoms or risk factors identified. Fall Risk None identified. Assessment: 09:08 General: Appears in no apparent distress. Behavior is cooperative, appropriate for age. tw2 Pain: Complains of pain in right lower quadrant. Neuro: Level of Consciousness is awake, alert, obeys commands, Oriented to person, place, time, situation. Neuro: Reports numbness "intermittently down both arms and then pins and needles in my legs at times like it has gone asleep". Cardiovascular: Heart tones S1 S2 Patient's skin is warm and dry. Respiratory: Airway is patent Respiratory effort is even, unlabored, Respiratory pattern is regular, symmetrical, Breath sounds are clear bilaterally. GI: Abdomen is round non-distended, Bowel sounds present X 4 quads. Abd is soft X 4 quads Reports lower abdominal pain. : No signs and/or symptoms were reported regarding the genitourinary system. EENT: No signs and/or symptoms were reported regarding the EENT system. Derm: No signs and/or symptoms reported regarding the dermatologic system. Musculoskeletal: Circulation, motion, and sensation intact. Range of motion: intact in all extremities. 10:10 Reassessment: Patient appears in no apparent distress at this time. No changes from tw2 previously documented assessment. Patient and/or family updated on plan of care and expected duration. Pain level reassessed. Patient is alert, oriented x 3, equal unlabored respirations, skin warm/dry/pink. 11:23 Reassessment: Patient appears in no apparent distress at this time. No changes from tw2 previously documented assessment. Patient and/or family updated on plan of care and expected duration. Pain level reassessed. Patient is alert, oriented x 3, equal unlabored respirations, skin warm/dry/pink. Vital Signs: 09:03 BP 124 / 78; Pulse 81; Resp 16; Temp 97.8; Pulse Ox 100% on R/A; Weight 83.91 kg; hb Height 5 ft. 1 in. (154.94 cm); Pain 5/10; 09:16 BP 103 / 71 Standing; Pulse 110; tw2 09:16 BP 115 / 74 Supine; Pulse 108; Resp 17; tw2 09:16 BP 106 / 67 Sitting; Pulse 100; Resp 17; tw2 10:10 BP 100 / 64; Pulse 97; Resp 17; Pulse Ox 100% on R/A; tw2 11:23 BP 112 / 69; Pulse 88; Resp 19; Pulse Ox 100% on R/A; tw2 09:03 Body Mass Index 34.96 (83.91 kg, 154.94 cm) ED Course: 08:40 Patient arrived in ED. as 08:43 Nani Hdz FNP-C is PHCP. kb 08:43 Raymundo Montoya MD is Attending Physician. kb 08:50 Bed in low position. Call light in reach. tw2 08:51 Carley Greenwood, RN is Primary Nurse. tw2 09:02 Triage completed. hb 09:05 Arm band placed on. hb 09:10 Initial lab(s) drawn, by me, sent to lab. Inserted saline lock: 20 gauge in right dh3 antecubital area, using aseptic technique. Blood collected. 10:11 CT Abd/Pelvis - IV Contrast Only In Process Unspecified. EDMS 10:41 Chest Pa And Lat (2 Views) XRAY In Process Unspecified. EDMS 11:26 No provider procedures requiring assistance completed. IV discontinued, intact, tw2 bleeding controlled, No redness/swelling at site. Pressure dressing applied. Administered Medications: No medications were administered Outcome: 11:12 Discharge ordered by MD. kb 11:26 Discharged to home ambulatory. tw2 11:26 Condition: stable 11:26 Discharge instructions given to patient, Instructed on discharge instructions, follow up and referral plans. no drinking with medication, no driving heavy equipment, medication usage, Demonstrated understanding of instructions, follow-up care, medications, Prescriptions given X 2. 11:30 Patient left the ED. tw2 Signatures: Dispatcher [employer] EDMS Nani Hdz, GLADYS AYALA-Sydnee Singleton Heather, RN SAMSON Carley Greenwood, RN RN tw2 Summer Meza formerly [facility]
--- NOTE | 2019-08-04 11:13 | EDPHYS ---
Physician Documentation [facility] Name: Jeanne Pascual Age: 29 yrs Sex: Female : 1990 Arrival Date: 08/04/2019 Time: 08:40 Bed 20 Private MD: ED Physician Raymundo Montoya HPI: 08/04 11:20 This 29 yrs old Female presents to ER via Ambulatory with complaints of kb Shoulder Pain, Abdominal Pain. 11:20 The patient presents with abdominal pain right lower quadrant. Onset: The kb symptoms/episode began/occurred yesterday. The symptoms radiate to right upper quadrant. Associated signs and symptoms: none. The symptoms are described as constant. Modifying factors: The symptoms are alleviated by nothing, the symptoms are aggravated by nothing. Severity of pain: At its worst the pain was moderate in the emergency department the pain is unchanged. The patient has not experienced similar symptoms in the past. The patient has not recently seen a physician. Pt reports right abd pain that started yesterday. Reports neck pain that radiates down both shoulders and arms with tingling. Also reports shortness of breath on exertion every once in a while that started a few months ago. 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 - Social history:: Smoking status: Patient denies any tobacco usage or history of. - Ebola Screening: : No symptoms or risks identified at this time. ROS: 11:18 Constitutional: Negative for fever, chills, and weight loss, ENT: Negative for injury, kb pain, and discharge, Cardiovascular: Negative for chest pain, palpitations, and edema, : Negative for injury, bleeding, discharge, and swelling, MS/Extremity: Negative for injury and deformity, Skin: Negative for injury, rash, and discoloration. 11:18 Neck: Positive for pain with movement, pain at rest, of the right posterior aspect of neck and left posterior aspect of neck. 11:18 Respiratory: Positive for shortness of breath, on exertion. 11:18 Abdomen/GI: Positive for abdominal pain. 11:18 Neuro: Positive for tingling. Exam: 11:19 Constitutional: This is a well developed, well nourished patient who is awake, alert, kb and in no acute distress. Head/Face: Normocephalic, atraumatic. ENT: Nares patent. No nasal discharge, no septal abnormalities noted. Tympanic membranes are normal and external auditory canals are clear. Oropharynx with no redness, swelling, or masses, exudates, or evidence of obstruction, uvula midline. Mucous membranes moist. Neck: Trachea midline, no thyromegaly or masses palpated, and no cervical lymphadenopathy. Supple, full range of motion without nuchal rigidity, or vertebral point tenderness. No Meningismus. Chest/axilla: Normal chest wall appearance and motion. Nontender with no deformity. No lesions are appreciated. Cardiovascular: Regular rate and rhythm with a normal S1 and S2. No gallops, murmurs, or rubs. Normal PMI, no JVD. No pulse deficits. Respiratory: Lungs have equal breath sounds bilaterally, clear to auscultation and percussion. No rales, rhonchi or wheezes noted. No increased work of breathing, no retractions or nasal flaring. Back: No spinal tenderness. No costovertebral tenderness. Full range of motion. Skin: Warm, dry with normal turgor. Normal color with no rashes, no lesions, and no evidence of cellulitis. MS/ Extremity: Pulses equal, no cyanosis. Neurovascular intact. Full, normal range of motion. Neuro: Awake and alert, GCS 15, oriented to person, place, time, and situation. Cranial nerves II-XII grossly intact. Motor strength 5/5 in all extremities. Sensory grossly intact. Cerebellar exam normal. Normal gait. 11:19 Abdomen/GI: Inspection: abdomen appears normal, Bowel sounds: normal, in all quadrants, Palpation: soft, in all quadrants, moderate abdominal tenderness, in the right lower quadrant. Vital Signs: 09:03 BP 124 / 78; Pulse 81; Resp 16; Temp 97.8; Pulse Ox 100% on R/A; Weight 83.91 kg; hb Height 5 ft. 1 in. (154.94 cm); Pain 5/10; 09:16 BP 103 / 71 Standing; Pulse 110; tw2 09:16 BP 115 / 74 Supine; Pulse 108; Resp 17; tw2 09:16 BP 106 / 67 Sitting; Pulse 100; Resp 17; tw2 10:10 BP 100 / 64; Pulse 97; Resp 17; Pulse Ox 100% on R/A; tw2 11:23 BP 112 / 69; Pulse 88; Resp 19; Pulse Ox 100% on R/A; tw2 09:03 Body Mass Index 34.96 (83.91 kg, 154.94 cm) hb MDM: 08:50 Patient medically screened. kb 11:18 Data reviewed: vital signs, nurses notes. Data interpreted: Pulse oximetry: on room air kb is 100 %. Interpretation: normal. Counseling: I had a detailed discussion with the patient and/or guardian regarding: the historical points, exam findings, and any diagnostic results supporting the discharge/admit diagnosis, lab results, radiology results, the need for outpatient follow up, a family practitioner, to return to the emergency department if symptoms worsen or persist or if there are any questions or concerns that arise at home. 08/04 09:01 Order name: Basic Metabolic Panel; Complete Time: 10:09 kb 08/04 09:01 Order name: CBC with Diff; Complete Time: 09:19 kb 08/04 09:01 Order name: Hepatic Function; Complete Time: 10:09 kb 08/04 09:01 Order name: Lipase; Complete Time: 10:09 kb 08/04 09:01 Order name: TSH; Complete Time: 10:09 kb 08/04 09:32 Order name: Urine Dipstick--Ancillary (enter results); Complete Time: 09:54 eb 08/04 09:01 Order name: IV Saline Lock; Complete Time: 09:12 kb 08/04 09:01 Order name: Labs collected and sent; Complete Time: 09:12 kb 08/04 09:01 Order name: Urine Dipstick-Ancillary (obtain specimen); Complete Time: 10:02 kb 08/04 09:01 Order name: Chest Pa And Lat (2 Views) XRAY; Complete Time: 10:51 kb 08/04 09:01 Order name: CT Abd/Pelvis - IV Contrast Only; Complete Time: 10:22 kb 08/04 09:01 Order name: Orthostatics; Complete Time: 09:14 kb 08/04 09:32 Order name: Urine --Ancillary (enter results); Complete Time: 09:54 eb Administered Medications: No medications were administered Disposition: 13:40 Co-signature as Attending Physician, Raymundo Montoya MD I agree with the assessment and kdr plan of care. Disposition: 08/04/19 11:12 Discharged to Home. Impression: Radiculopathy, Lower abdominal pain, unspecified. - Condition is Stable. - Discharge Instructions: Abdominal Pain, Adult, [id number], Cervical Radiculopathy, [id number]. - Prescriptions for Cyclobenzaprine 10 mg Oral Tablet - take 1 tablet by ORAL route every 8 hours As needed; 21 tablet. Diclofenac Sodium 75 mg Oral Tablet, Delayed Release (E.C.) - take 1 tablet by ORAL route 2 times per day As needed; 30 tablet. - Medication Reconciliation Form, Thank You Letter, Antibiotic Education, Prescription Opioid Use, Work release form form. - Follow up: Emergency Department; When: As needed; Reason: Worsening of condition. Follow up: Private Physician; When: 2 - 3 days; Reason: Recheck today's complaints, Continuance of care, Re-evaluation by your physician. Signatures: Dispatcher [employer] EDMS Nani Hdz, ZIGZAG ELASTIC ATTACHER-C ZIGZAG ELASTIC ATTACHER-CkRaymundo Ortega MD MD [facility] Lorena Liao RN RN Carley Greenwood RN RN tw2 Corrections: (The following items were deleted from the chart) 11:30 11:12 08/04/2019 11:12 Discharged to Home. Impression: Radiculopathy; Lower abdominal tw2 pain, unspecified. Condition is Stable. Forms are Work release form, Medication Reconciliation Form, Thank You Letter, Antibiotic Education, Prescription Opioid Use. Follow up: Emergency Department; When: As needed; Reason: Worsening of condition. Follow up: Private Physician; When: 2 - 3 days; Reason: Recheck today's complaints, Continuance of care, Re-evaluation by your physician. kb
[2019-08-04 11:42] VITALS: TEMP 97.8; O2SAT 100
[2019-08-04 11:48] VITALS: BP 112/69
== END 2019-08-04 11:30 | disposition home or self-care (01) ==
LOC: ER 08:37
DX: R10.30 Lower abdominal pain, unspecified (principal); M54.10 Radiculopathy, site unspecified; Z88.1 Allergy status to other antibiotic agents
CPT/HCPCS: 36415; 71046; 74177; 80048; 80076; 81003; 81025; 83690; 84443; 85025; 99284; Q9967

== ENCOUNTER 2020-12-05 20:06 | Emergency (ER) | payer SELFPAY ==
[2020-12-05 20:44] LABS: Absolute Lymphocytes (CBC) 1.3 K/uL (0.7-4.9); Basophils % 0.8 % (0-1.3)
[2020-12-05] MEDS ORDERED: KETOROLAC 30 MG/ML INJ ONE (20:48)
[2020-12-05] MEDS ORDERED: NA CHLORIDE 0.9% 1,000 ML ONE (20:48)
[2020-12-05 20:52] LABS: Hematocrit 40.7 % (36.0-45.0); Lymphocytes % 20.6 % (15.3-44.8); RBC Red Blood Cell Count 4.74 M/uL (3.86-4.86)
[2020-12-05 21:16] LABS: ALT/SGPT 21 U/L (12-78); AST/SGOT 14 U/L (15-37); Albumin 3.6 g/dL (3.4-5.0); Alkaline Phosphatase 90 U/L (45-117); BUN Blood Urea Nitrogen 9 mg/dL (7-18); Bicarbonate 24 mmol/L (21-32); Bilirubin Direct < 0.1 mg/dL (0-0.2); Bilirubin Total 0.3 mg/dL (0.2-1.0); Glucose Level 105 mg/dL (74-106); Lipase 81 U/L (73-393); Potassium 3.3 mmol/L (3.5-5.1); Protein, Total 7.7 g/dL (6.4-8.2); Sodium Level 139 mmol/L (136-145)
[2020-12-05 21:55] LABS: Urine Blood Trace-intact (Negative); Urine Glucose Negative (Negative); Urine Protein Trace (Negative); Urine Specific Gravity >=1.030 (1.005-1.030); Urine pH 5.5 (5.0-7.0)
[2020-12-05 22:19] LABS: Urine Specific Gravity/Preg >1.030 (1.005-1.030)
--- NOTE | 2020-12-05 23:20 | EDPHYS ---
Physician Documentation [facility] Name: Jeanne Pascual Age: 30 yrs Sex: Female : 1990 Arrival Date: 12/05/2020 Time: 20:08 Bed 18 Private MD: ED Physician Aba Hernandez HPI: 12/05 23:43 This 30 yrs old Female presents to ER via Ambulatory with complaints of kb Altered Mental Status, Diarrhea, Shortness Of Breath, Decreased Appetite, Abdominal Pain. 23:43 The patient presents with abdominal pain in the right upper quadrant. Onset: The kb symptoms/episode began/occurred yesterday. The symptoms do not radiate. Associated signs and symptoms: Pertinent positives: nausea, vomiting, and diarrhea, anxiety, Pertinent negatives: fever. The symptoms are described as constant. Modifying factors: The symptoms are alleviated by nothing, the symptoms are aggravated by nothing. Severity of pain: At its worst the pain was moderate in the emergency department the pain is unchanged. The patient has not experienced similar symptoms in the past. The patient has not recently seen a physician. 23:43 Mother states pt has had upper abd pain, n/v/d and anxiety since yesterday. States she kb just gets really scared for no reason. Has a history of anxiety and this has happened before. . 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 - Social history:: Smoking status: Patient denies any tobacco usage or history of. ROS: 23:43 Constitutional: Negative for fever, chills, and weight loss. kb 23:43 Abdomen/GI: Positive for abdominal pain, nausea, vomiting, and diarrhea. 23:43 Psych: Positive for anxiety. 23:43 All other systems are negative. Exam: 23:43 Constitutional: This is a well developed, well nourished patient who is awake, alert, kb and in no acute distress. Head/Face: Normocephalic, atraumatic. ENT: Moist Mucous membranes Cardiovascular: Regular rate and rhythm with a normal S1 and S2. No gallops, murmurs, or rubs. No pulse deficits. Respiratory: Respirations even and unlabored. No increased work of breathing, no retractions or nasal flaring. Abdomen/GI: Soft, non-tender. No distention Skin: Warm, dry with normal turgor. Normal color. MS/ Extremity: Pulses equal, no cyanosis. Neurovascular intact. Full, normal range of motion. Neuro: Awake and alert, GCS 15, oriented to person, place, time, and situation. Moves all extremities. Normal gait. 23:43 Constitutional: The patient appears anxious. 23:43 Psych: Behavior/mood is cooperative, anxious, Affect is animated, Oriented to person, place, time, Patient has no thoughts/intents to harm self or others. Judgement / Insight is normal. Memory is normal. Vital Signs: 20:23 BP 120 / 91; Pulse 107; Resp 16; Temp 98.3; Pulse Ox 100% ; Weight 81.65 kg; Height 5 vg1 ft. 1 in. (154.94 cm); Pain 10/10; 21:56 BP 116 / 73; Pulse 92; Resp 18 S; Pulse Ox 97% on R/A; ad5 22:41 Pulse 101; Resp 18 S; Pulse Ox 99% on R/A; ad5 23:28 BP 122 / 79; Pulse 94; Resp 16 S; Pulse Ox 97% on R/A; ad5 20:23 Body Mass Index 34.01 (81.65 kg, 154.94 cm) vg1 MDM: 20:20 Patient medically screened. kb 23:01 Data reviewed: vital signs, nurses notes. Data interpreted: Pulse oximetry: on room air kb is 99 %. Interpretation: normal. Counseling: I had a detailed discussion with the patient and/or guardian regarding: the historical points, exam findings, and any diagnostic results supporting the discharge/admit diagnosis, lab results, radiology results, the need for outpatient follow up, a family practitioner, to return to the emergency department if symptoms worsen or persist or if there are any questions or concerns that arise at home. 12/05 20:25 Order name: Basic Metabolic Panel kb 12/05 20:25 Order name: CBC with Diff; Complete Time: 21:21 kb 12/05 20:25 Order name: Hepatic Function kb 12/05 20:25 Order name: Lipase kb 12/05 20:26 Order name: Basic Metabolic Panel; Complete Time: 21:21 EDRI 12/05 20:26 Order name: Liver (Hepatic) Function; Complete Time: 21:21 EDRI 12/05 20:25 Order name: US Abdomen Limited kb 12/05 20:26 Order name: Lipase; Complete Time: 21:21 EDRI 12/05 21:22 Order name: CT Abd/Pelvis - IV Contrast Only kb 12/05 21:55 Order name: Urine Dipstick-Ancillary; Complete Time: 22:01 EDRI 12/05 21:55 Order name: Urine --Ancillary (enter results); Complete Time: 22:38 mw2 12/05 20:25 Order name: IV Saline Lock; Complete Time: 20:34 kb 12/05 20:25 Order name: Labs collected and sent; Complete Time: 20:34 kb Administered Medications: 20:34 Drug: NS 0.9% 1000 ml Route: IV; Rate: 1000 ml; Site: right hand; ad5 21:56 Follow up: IV Status: Completed infusion; IV Intake: 1000ml ad5 20:35 Drug: TORadol (ketorolac) 30 mg Route: IVP; Site: right hand; ad5 21:08 Follow up: Response: No adverse reaction; Pain is decreased ad5 23:27 Drug: Ativan (LORazepam) 0.5 mg Route: IVP; Site: right antecubital; ad5 23:27 Follow up: Response: No adverse reaction ad5 Disposition: 12/06 07:39 Co-signature as Attending Physician, Aba Hernandez MD. [email or web address] Disposition: 12/05/20 23:20 Discharged to Home. Impression: Diarrhea, unspecified, Nausea and vomiting, Upper abdominal pain, unspecified, Acute stress reaction. - Condition is Stable. - Discharge Instructions: Food Choices to Help Relieve Diarrhea, Adult, Viral Gastroenteritis, Adult, [id number], Panic Attacks, [id number]. - Prescriptions for Bentyl 20 mg Oral Tablet - take 1 tablet by ORAL route every 6 hours As needed; 20 tablet. Zofran 4 mg Oral Tablet - take 1 tablet by ORAL route every 6 hours As needed; 20 tablet. - Medication Reconciliation Form, Thank You Letter, Antibiotic Education, Prescription Opioid Use form. - Follow up: Emergency Department; When: As needed; Reason: Worsening of condition. Follow up: Private Physician; When: 2 - 3 days; Reason: Recheck today's complaints, Continuance of care, Re-evaluation by your physician. Signatures: Dispatcher [employer] Nani Solorzano FNP-C FNP-Tiana Alexander, RN RN vg1 Aba Hernandez MD MD mh7 Justice Harrison ad5 Corrections: (The following items were deleted from the chart) 12/05 23:47 23:20 12/05/2020 23:20 Discharged to Home. Impression: Diarrhea, unspecified; Nausea ad5 and vomiting; Upper abdominal pain, unspecified; Acute stress reaction. Condition is Stable. Forms are Medication Reconciliation Form, Thank You Letter, Antibiotic Education, Prescription Opioid Use. Follow up: Emergency Department; When: As needed; Reason: Worsening of condition. Follow up: Private Physician; When: 2 - 3 days; Reason: Recheck today's complaints, Continuance of care, Re-evaluation by your physician. kb
--- NOTE | 2020-12-05 23:20 | ER ---
Nurse's Notes [facility] Name: Jeanne Pascual Age: 30 yrs Sex: Female : 1990 Arrival Date: 12/05/2020 Time: 20:08 Bed 18 Private MD: Diagnosis: Diarrhea, unspecified;Nausea and vomiting;Upper abdominal pain, unspecified;Acute stress reaction Presentation: 12/05 20:23 Chief complaint: Parent and/or Guardian states: NVD, RUQ ABD Pain since yesterday. Pt vg1 stated vomited twice today and is unable to eat or drink much. Coronavirus screen: Client denies travel out of the [place] in the last 14 days. Ebola Screen: Patient negative for fever greater than or equal to 101.5 degrees Fahrenheit, and additional compatible Ebola Virus Disease symptoms. Initial Sepsis Screen: Does the patient meet any 2 criteria? No. Patient's initial sepsis screen is negative. Does the patient have a suspected source of infection? No. Patient's initial sepsis screen is negative. Risk Assessment: Do you want to hurt yourself or someone else? Patient reports no desire to harm self or others. Onset of symptoms was December 04, 2020. 20:23 Method Of Arrival: Ambulatory vg1 20:23 Acuity: ANGELA 3 vg1 Triage Assessment: 20:25 General: Appears in no apparent distress. uncomfortable, Behavior is anxious. Pain: vg1 Complains of pain in right upper quadrant Pain currently is 10 out of 10 on a pain scale. Neuro: Level of Consciousness is awake, alert, obeys commands, Oriented to person, place, time, situation. 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 - Social history:: Smoking status: Patient denies any tobacco usage or history of. Screenin:37 Abuse screen: Denies threats or abuse. Denies injuries from another. Nutritional ad5 screening: No deficits noted. Tuberculosis screening: No symptoms or risk factors identified. Fall Risk None identified. Assessment: 20:35 General: Appears uncomfortable, Behavior is cooperative, anxious, crying. Pain: ad5 Complains of pain in right upper quadrant Pain began suddenly, 1 day ago. Aggravated by eating, drinking. 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 Gait is steady, Speech is normal, Facial symmetry appears normal, Intact. Cardiovascular: Reports nausea, vomiting, Heart tones present Capillary refill < 3 seconds JVD is absent Patient's skin is warm and dry. Pulses are all present. Rhythm is regular. Respiratory: No deficits noted. Airway is patent Trachea midline Respiratory effort is even, unlabored, Respiratory pattern is regular, symmetrical, Breath sounds are clear bilaterally. GI: Abdomen is flat, Bowel sounds present X 4 quads. Abd is soft X 4 quads Abdomen is tender to palpation in right upper quadrant. : No deficits noted. EENT: No deficits noted. Derm: No deficits noted. Skin is pink, warm \T\ dry. Musculoskeletal: No deficits noted. 21:55 Reassessment: Patient appears in no apparent distress at this time. No changes from ad5 previously documented assessment. Patient and/or family updated on plan of care and expected duration. Pain level reassessed. Patient is alert, oriented x 3, equal unlabored respirations, skin warm/dry/pink. 22:41 Reassessment: Patient appears in no apparent distress at this time. No changes from ad5 previously documented assessment. Patient and/or family updated on plan of care and expected duration. Pain level reassessed. Patient is alert, oriented x 3, equal unlabored respirations, skin warm/dry/pink. 23:28 Reassessment: Patient appears in no apparent distress at this time. No changes from ad5 previously documented assessment. Patient and/or family updated on plan of care and expected duration. Pain level reassessed. Vital Signs: 20:23 BP 120 / 91; Pulse 107; Resp 16; Temp 98.3; Pulse Ox 100% ; Weight 81.65 kg; Height 5 vg1 ft. 1 in. (154.94 cm); Pain 10/10; 21:56 BP 116 / 73; Pulse 92; Resp 18 S; Pulse Ox 97% on R/A; ad5 22:41 Pulse 101; Resp 18 S; Pulse Ox 99% on R/A; ad5 23:28 BP 122 / 79; Pulse 94; Resp 16 S; Pulse Ox 97% on R/A; ad5 20:23 Body Mass Index 34.01 (81.65 kg, 154.94 cm) vg1 ED Course: 20:08 Patient arrived in ED. cf2 20:17 Justice Harrison is Primary Nurse. ad5 20:19 Nani H[facility] F[facility]-C [facility]. kb 20:19 Aba Hernandez MD is Attending Physician. kb 20:25 Triage completed. vg1 20:25 Arm band placed on. vg1 20:29 Initial lab(s) drawn, by me, sent to lab. Inserted saline lock: 20 gauge in right hand, ad5 using aseptic technique. 20:35 No provider procedures requiring assistance completed. ad5 20:38 Patient has correct armband on for positive identification. Bed in low position. Call ad5 light in reach. Side rails up X2. Adult w/ patient. Pulse ox on. NIBP on. Door closed. Noise minimized. Warm blanket given. 21:24 US Abdomen Limited In Process Unspecified. EDMS 21:28 Radiology exam delayed due to test not completed at this time. IV insertion vm2 attempt and/or patient not having appropriate IV at this time. 21:55 Inserted saline lock: 20 gauge in right antecubital area, using aseptic technique. ad5 22:17 CT Abd/Pelvis - IV Contrast Only In Process Unspecified. EDMS 23:47 IV discontinued, intact, bleeding controlled, No redness/swelling at site. Pressure ad5 dressing applied. Administered Medications: 20:34 Drug: NS 0.9% 1000 ml Route: IV; Rate: 1000 ml; Site: right hand; ad5 21:56 Follow up: IV Status: Completed infusion; IV Intake: 1000ml ad5 20:35 Drug: TORadol (ketorolac) 30 mg Route: IVP; Site: right hand; ad5 21:08 Follow up: Response: No adverse reaction; Pain is decreased ad5 23:27 Drug: Ativan (LORazepam) 0.5 mg Route: IVP; Site: right antecubital; ad5 23:27 Follow up: Response: No adverse reaction ad5 Intake: 21:56 IV: 1000ml; Total: 1000ml. ad5 Outcome: 23:20 Discharge ordered by . kb 23:47 Discharged to home ambulatory, with significant other. ad5 23:47 Condition: stable 23:47 Discharge instructions given to patient, Instructed on discharge instructions, follow up and referral plans. medication usage, Demonstrated understanding of instructions, follow-up care, medications. 23:47 Patient left the ED. ad5 Signatures: Dispatcher [employer] EDNani Toledo, MACHINE PROGRAMMER-C MACHINE PROGRAMMER-Tiana Petersen 2 Jocelin Francis 2 Tiana Pascual, RN RN vg1 Justice Harrison ad5
[2020-12-05] MEDS ORDERED: LORazepam 2 MG/ML VIAL ONE (23:43)
[2020-12-06 00:46] VITALS: TEMP 98.3
[2020-12-06 00:52] VITALS: BP 122/79; O2SAT 97
--- NOTE | 2020-12-06 08:16 | RAD REPORT ---
EXAM DESCRIPTION: US - Abdomen Exam Limited - 12/05/2020 9:24 pm CLINICAL HISTORY: ABD PAIN COMPARISON: Abdomen Exam Limited dated 04/12/2018 FINDINGS: Exam was limited by difficulty with patient positioning. The gallbladder demonstrates no gross gallstones. No gross pericholecystic fluid or gallbladder wall thickening. The common bile duct is normal measuring 4 mm. The liver demonstrates no findings of intrahepatic biliary dilatation. IMPRESSION: Grossly negative examination.
--- NOTE | 2020-12-06 18:32 | RAD REPORT ---
EXAM DESCRIPTION: Abdomen Pelvis W Contrast CLINICAL HISTORY: 30 years Female ABD PAIN COMPARISON: None. TECHNIQUE: Contiguous axial images obtained through the abdomen and pelvis following IV contrast. Re formatted images obtained. This exam was performed according to our department optimization program which includes automated exp osure control, adjustment of the mA and/or kv according to patient size and/or use of iterative recon struction technique. FINDINGS: The lung bases are clear. The liver appears unremarkable. The spleen and pancreas appear unremarkable. No adrenal masses. The kidneys appear unremarkable. No hydronephrosis. The gallbladder is visualized. No aneurysmal dilatation of the aorta. The colon is distended with liquid appearing stool consistent with a diarrheal state. No bowel obstru ction. The appendix appears unremarkable. No significant free pelvic fluid. There is a right ovarian cyst measuring approximately 2.9 cm in maximum diameter. There are scattered slightly prominent mesenteric lymph nodes which are nonspeci fic. IMPRESSION: The colon is distended with liquid appearing stool consistent with a diarrheal state. Scattered slightly prominent mesenteric lymph nodes which are nonspecific. 2.9 cm benign appearing ovarian cyst. No follow-up imaging is recommended. Reference: J Am Betty Radiol 2013;10:[id number] Electronically signed by: Santiago Eng MD 12/05/2020 10:41 PM CDT Due to temporary technical issues with the PACS/Fluency reporting system, reports are being signed by the in house radiologists without review as a courtesy to insure prompt reporting. The interpreting radiologist is fully responsible for the content of the report.
== END 2020-12-05 23:47 | disposition home or self-care (01) ==
LOC: ER 20:06
DX: F43.0 Acute stress reaction (principal); R19.7 Diarrhea, unspecified; R10.11 Right upper quadrant pain; Z88.1 Allergy status to other antibiotic agents; Z85.41 Personal history of malignant neoplasm of cervix uteri
CPT/HCPCS: 36415; 74177; 76705; 80048; 80076; 81003; 81025; 83690; 85025; 99284; J7030; Q9967

== ENCOUNTER 2021-03-09 12:53 | Emergency (ER) | payer SELFPAY ==
--- NOTE | 2021-03-09 13:40 | EDPHYS ---
Physician Documentation [facility] Name: Jeanne aPscual Age: 31 yrs Sex: Female : 1990 Arrival Date: 03/09/2021 Time: 12:56 Bed Waiting Private MD: ED Physician Emily Ramirez HPI: 03/09 16:25 This 31 yrs old Female presents to ER via Ambulatory with complaints of kb COVID+, Breathing Difficulty. 16:25 The patient or guardian reports cough, that is intermittent, described as mild, kb difficulty breathing. Onset: The symptoms/episode began/occurred yesterday. Severity of symptoms: At their worst the symptoms were moderate, in the emergency department the symptoms are unchanged. Modifying factors: The symptoms are alleviated by nothing, the symptoms are aggravated by nothing. Associated signs and symptoms: The patient has no apparent associated signs or symptoms. The patient has not experienced similar symptoms in the past. The patient has not recently seen a physician. 16:27 Pt states she tested positive for covid yesterday and can't take the shortness of kb breath. Historical: - Allergies: 13:32 Bactrim; ss - PMHx: 13:32 cervical cancer; Migraines; Ovarian cyst; ss - Immunization history:: Client reports having NOT received the Covid vaccine. - Social history:: Smoking status: Patient denies any tobacco usage or history of. ROS: 16:21 Constitutional: Negative for fever, chills, and weight loss. kb 16:21 Respiratory: Positive for cough, shortness of breath. 16:21 All other systems are negative. Exam: 16:25 Constitutional: This is a well developed, well nourished patient who is awake, alert, kb and in no acute distress. Head/Face: Normocephalic, atraumatic. ENT: Moist Mucous membranes Cardiovascular: Regular rate and rhythm with a normal S1 and S2. No gallops, murmurs, or rubs. No pulse deficits. Respiratory: Respirations even and unlabored. No increased work of breathing, no retractions or nasal flaring. Skin: Warm, dry with normal turgor. Normal color. MS/ Extremity: Pulses equal, no cyanosis. Neurovascular intact. Full, normal range of motion. Neuro: Awake and alert, GCS 15, oriented to person, place, time, and situation. Moves all extremities. Normal gait. Psych: Awake, alert, with orientation to person, place and time. Behavior, mood, and affect are within normal limits. Vital Signs: 13:31 Resp 20; Weight 81.65 kg; Height 5 ft. 1 in. (154.94 cm); Pain 10/10; ss 13:33 BP 126 / 96; Pulse 113; Resp 18; Temp 97.6(TE); Pulse Ox 100% on R/A; ss 13:31 Body Mass Index 34.01 (81.65 kg, 154.94 cm) ss MDM: 13:38 Patient medically screened. kb 16:20 Data reviewed: vital signs, nurses notes. Data interpreted: Pulse oximetry: on room air kb is 100 %. Interpretation: normal. Counseling: I had a detailed discussion with the patient and/or guardian regarding: the historical points, exam findings, and any diagnostic results supporting the discharge/admit diagnosis, the need for outpatient follow up, a family practitioner, to return to the emergency department if symptoms worsen or persist or if there are any questions or concerns that arise at home. Administered Medications: 13:43 Drug: HYDROcodone-acetaminophen 5 mg-325 mg 1 tabs Route: PO; ss 13:43 Follow up: Response: Medication administered at discharge. Disposition Summary: 03/09/21 13:39 Discharge Ordered Location: Home kb Condition: Stable kb Diagnosis - Coronavirus infection, unspecified kb Followup: kb - With: Emergency Department - When: As needed - Reason: Worsening of condition Followup: kb - With: Private Physician - When: 2 - 3 days - Reason: Recheck today's complaints, Continuance of care, Re-evaluation by your physician Discharge Instructions: - Discharge Summary Sheet kb - Viral Respiratory Infection, [id number] kb - COVID-19 kb Forms: - Medication Reconciliation Form kb - Thank You Letter kb - Antibiotic Education kb - Prescription Opioid Use kb Addendum: 03/11/2021 19:10 Co-signature as Attending Physician, Emily Ramirez MD. m a2 Signatures: Nani Hdz, JAMIE-C JAMIE-Sophia Holloway, SAMSON RN Emily Ramirez MD MD ma2
--- NOTE | 2021-03-09 13:40 | ER ---
Nurse's Notes [facility] Name: Jeanne Pascual Age: 31 yrs Sex: Female : 1990 Arrival Date: 03/09/2021 Time: 12:56 Bed Waiting Private MD: Diagnosis: Coronavirus infection, unspecified Presentation: 03/09 13:31 Chief complaint: Patient states: + covid test Wednesday. Pt reports her shortness of ss breath is worsening. Coronavirus screen: Client presents with at least one sign or symptom that may indicate coronavirus-19. Ebola Screen: Patient denies exposure to infectious person. Patient denies travel to an Ebola-affected area in the 21 days before illness onset. Initial Sepsis Screen: Does the patient meet any 2 criteria? No. Patient's initial sepsis screen is negative. Does the patient have a suspected source of infection? No. Patient's initial sepsis screen is negative. Risk Assessment: Do you want to hurt yourself or someone else? Patient reports no desire to harm self or others. Onset of symptoms was March 05, 2020. 13:31 Method Of Arrival: Ambulatory ss 13:31 Acuity: ANGELA 3 ss Historical: - Allergies: 13:32 Bactrim; ss - PMHx: 13:32 cervical cancer; Migraines; Ovarian cyst; ss - Immunization history:: Client reports having NOT received the Covid vaccine. - Social history:: Smoking status: Patient denies any tobacco usage or history of. Screenin:31 Abuse screen: Denies threats or abuse. Denies injuries from another. Nutritional ss screening: No deficits noted. Tuberculosis screening: Never had TB. Fall Risk None identified. Assessment: 13:31 General: Appears uncomfortable, Behavior is cooperative, anxious, Reports feeling ill ss for. Neuro: Level of Consciousness is awake, alert, obeys commands, Oriented to person, place, time, situation. Cardiovascular: Capillary refill < 3 seconds is brisk in bilateral fingers Patient's skin is warm and dry. Rhythm is sinus tachycardia. Respiratory: Airway is patent Trachea midline Respiratory effort is even, unlabored, Respiratory pattern is regular, symmetrical, Breath sounds are clear bilaterally. GI: No signs and/or symptoms were reported involving the gastrointestinal system. : No signs and/or symptoms were reported regarding the genitourinary system. Derm: Skin is intact, is healthy with good turgor, Skin is dry, Skin is pink, warm \T\ dry. normal. Musculoskeletal: Circulation, motion, and sensation intact. Range of motion: intact in all extremities, Swelling absent. Vital Signs: 13:31 Resp 20; Weight 81.65 kg; Height 5 ft. 1 in. (154.94 cm); Pain 10/10; ss 13:33 BP 126 / 96; Pulse 113; Resp 18; Temp 97.6(TE); Pulse Ox 100% on R/A; ss 13:31 Body Mass Index 34.01 (81.65 kg, 154.94 cm) ss ED Course: 12:56 Patient arrived in ED. mr 13:31 Patient has correct armband on for positive identification. Bed in low position. Call ss light in reach. 13:32 Triage completed. ss 13:32 Arm band placed on right wrist. ss 13:38 Nani Hdz F[facility]-C is [facility]. kb 13:38 Emily Ramirez MD is Attending Physician. kb 13:42 Sophia Allen, SAMSON is Primary Nurse. ss 13:42 No provider procedures requiring assistance completed. Patient did not have IV access ss during this emergency room visit. Administered Medications: 13:43 Drug: HYDROcodone-acetaminophen 5 mg-325 mg 1 tabs Route: PO; ss 13:43 Follow up: Response: Medication administered at discharge. ss Outcome: 13:39 Discharge ordered by . kb 13:42 Discharged to home ambulatory. ss 13:42 Condition: good 13:42 Discharge instructions given to patient, Instructed on discharge instructions, follow up and referral plans. Demonstrated understanding of instructions, follow-up care. 13:43 Patient left the ED. ss Signatures: Nani Hdz FNP-C FNP-Janene Kyara Crane mr Sophia Allen, RN RN ss
[2021-03-09 13:51] VITALS: BP 126/96; TEMP 97.6; O2SAT 100
[2021-03-09] MEDS ORDERED: HYDROCODONE/APAP 5/325 MG TAB ONE (14:02)
== END 2021-03-09 13:43 | disposition home or self-care (01) ==
LOC: ER 12:53
DX: U07.1 COVID-19 (principal); Z88.1 Allergy status to other antibiotic agents; Z85.41 Personal history of malignant neoplasm of cervix uteri
CPT/HCPCS: 99284

== ENCOUNTER 2021-03-13 15:25 | Emergency (ER) | payer SELFPAY ==
--- OUTSIDE RECORDS SUMMARY | 2021-03-13 15:28 | XMS REPORT | Continuity of Care Document ---
:1990 Author Organization [facility] t Address [address] [place] [address] Care Team Providers Name Role Phone Pcp, Does Not Have A Primary Care Physician Chase Prather DO Attending Clinician Doctor Unassigned, Name Attending Clinician Unavailable Payers Payer Name Policy Type Policy Effective Date Expiration Date Sour ce Number [employer] [place] [id number] 2020 [facility] 00:00:00 [place] Med ical [id number] Branch [id number], [place] [address]Futkw aid TMHPTEXAS [id number] 2012 [facility] 00:00:00 [place] Medic al [id number] Branch 2012-Prese [phone] [id number], [place] [address]Jgslr aid Problems Condition Condition Condition Status Onset Resolution Last Treating Co mments Source Name Details Category Date Date Treatment Clinician Date Encounter Encounter Disease Active Overview: Univers for for 4-18 Formattin ity of routine routine 00:00: g of this [place] gynecologi gynecologi 00 note Me dical emily emily might be Branch examinatio examinatio different n n from the original. ICD10 Diagnosis Term Test Boring Crew Chief Utility Morbid Morbid Disease Active Univers obesity obesity 4-18 ity of 00:00: [place] 00 Medical Branch Other and Other and Disease Active Uni vers unspecifie unspecifie 4-18 [place] y of d ovarian d ovarian 00:[place] cyst cyst 00 Medical [place] Dysplasia Dysplasia Disease Active Overview: Univers of cervix of cervix 4-18 Formattin i ty of 00:00: g of this [place] 00 note Medical might be Branch different from the original. Medical records. DOS-03/22. Pap smear- NIL. Hx of HSIL 1. LEEP biopsy report 1. PINKY 3. Needs annual pap smears. ICD10 Diagnosis Term Test Boring Crew Chief Utility Abdominal Abdominal Disease Active Overview: Univers pain, pain, 4-18 Formattin ity of epigastric epigastric 00:00: g of this [place] 00 note Medical might be Branch different from the original. Medical records received. [facility]- 08/[facility] scan of abdomen and pelvis. Impressio n: A normal appendix with no acute bowel process. Physiolog ic-sized follicles /cysts in both ovaries. No adnexal process is seen. Endovagin al US: Impressio n: Physiolog ic-sized follicles /cysts in both ovaries. No adnexal process is seen. The uterus is not well visualize d sonograph ically. Small fibroids are sen in the collectin g CT and US findings of the uterus are not suspiciou s. Need for Need for Disease Active Unive rs prophylact prophylact 4-18 it y of ic ic 00:00: [place] vaccinatio vaccinatio 00 Me dical n with n with Branch combined combined diphtheria diphtheria -tetanus-p -tetanus-p ertussis ertussis (DTP) (DTP) vaccine vaccine Allergies, Adverse Reactions, Alerts Allergy Allergy Status Severity Reaction(s) Onset Inactive Treating Comm ents Source Name Type Date Date Clinician Sulfamet Propensi Active Rash Pt Univer s hoxazole ty to 4-18 allergic ity of adverse 00:00: to [place] reaction 00 Bactri Medical s Branch Social History Social Habit Start Date Stop Date Quantity Comments Source Tobacco use and 2014-06-19 2014-06-19 Never used Universit y of exposure 00:00:00 00:00:00 [facility] Alcohol intake 2014-06-19 2014-06-19 Current drinker Unive rsity of 00:00:00 00:00:00 of alcohol [place] Medical (finding) Branch Alcohol Comment 2012-10-27 2012-10-27 social Universit y of 00:00:00 00:00:00 [facility] Sex [birth year] Universit y of 00:00:00 00:00:00 [facility] Smoking Status Start Date Stop Date Source Never smoker [facility] Branch Medications Ordered Filled Start Stop Current Ordering Indication Dosage Frequency Signature Comments Components Source Medication Medication Date Date Medication? Clinician (SIG) Name Name albuterol Yes [id number] 2{puff} Inhale 2 Univers 90 8-31 Puffs ity of mcg/actuati 00:00: every 4 [place] as on inhaler 00 (four) Medical hours as Branch needed for Wheezing or Shortness of Breath. benzonatate Yes [id number] 100mg Take 1 Univers 100 mg 8-31 capsule by ity of capsule 00:00: mouth 3 [place] 00 (three) Medical times Branch daily as needed for Cough. bromphenira Yes [id number] 5mL Take 5 mL Univers mine-pseudo 8-31 by mouth 4 it y of ephedrine-D 00:00: (four) [place] M (BROMFED 00 times Medical DM) 2-30-10 daily as Bran ch mg/5 mL needed for syrup Congestion /Allergies . ibuprofen Yes 600mg Take 600 Uni vers (MOTRIN) 4-18 mg by ity of 600 mg 14:24: mouth [place] tablet 46 every 6 Medical (six) Branch hours as needed. ibuprofen Yes 600mg Take 600 Uni vers (MOTRIN) 4-18 mg by ity of 600 mg 14:24: mouth [place] tablet 46 every 6 Medical (six) Branch hours as needed. Immunizations Ordered Filled Immunization Date Status Comments Sourc e Immunization Name Name TDAP 2012-10-27 Completed University of 00:00:00 [facility] TDAP 2012-10-27 Completed University of 00:00:00 [facility] Rubella 2004-10-06 Completed University of 00:00:00 [facility] Rubella 2004-10-06 Completed University of 00:00:00 [facility] Td 2003-03-16 Completed University of 00:00:00 [facility] Td 2003-03-16 Completed University 00:00:00 [facility] Vital Signs Vital Name Observation Time Observation Value Comments Source Systolic blood 2021-03-11 17:35:00 120 mm[Hg] Univer sity of pressure [facility] Diastolic blood 2021-03-11 17:35:00 83 mm[Hg] Unive rsity of pressure [facility] Heart rate 2021-03-11 17:35:00 115 /min [facility] Body temperature 2021-03-11 17:35:00 37.61 Sofie [facility] Respiratory rate 2021-03-11 17:35:00 26 /min [facility] Body weight 2021-03-11 17:35:00 86.183 kg [facility] BMI 2021-03-11 17:35:00 35.90 kg/m2 [facility] Oxygen saturation in 2021-03-11 17:35:00 94 /min [facility] Arterial blood by [facility] Pulse oximetry Branch Procedures Procedure Date / Time Performed Performing Clinician [facility] e NOTICE OF PRIVACY 2021-03-11 17:23:21 Doctor Unassigned, No Univ [facility] PRACTICES Name [facility] CONSENT/REFUSAL FOR 2021-03-11 17:23:03 Doctor Unassigned, No Un [facility] DIAGNOSIS AND Name Medical Branch TREATMENT Encounters Start End Encounter Admission Attending Care Care Encounter Source Date/Time Date/Time Type Type Clinicians Facility Department ID 2021-03-11 2021-03-11 Emergency Crescencio [facility] [id number] [facility] 12:37:00 16:21:00 Renee Elise [id number] ity of [place] [id number] [place] [facility] [id number] [facility] 084 Branch 2021-03-11 2021-03-11 Orders Doctor CASTRO [id number] Univers 00:00:00 00:00:00 Only Unassigned, DARRELL [id number] [place]y of [place] [facility] [id number] [place] as [id number] [facility] 009 Branch Results This patient has no known results.
--- NOTE | 2021-03-13 16:13 | RAD REPORT ---
EXAM DESCRIPTION: RAD - Chest Pa And Lat (2 Views) - 03/13/2021 4:07 pm CLINICAL HISTORY: COUGH Chest pain. COMPARISON: Chest Pa And Lat (2 Views) dated 08/04/2019; Chest Pa And Lat (2 Views) dated 10/06/2018; Chest Pa And Lat (2 Views) dated 08/27/2017; Chest Pa And Lat (2 Views) dated 06/08/2017 FINDINGS: Mild bilateral interstitial lung opacities are present most compatible with underlying vir al infection/ bronchitis. The heart is normal in size. No displaced fractures.
[2021-03-13 21:11] LABS: Absolute Lymphocytes (CBC) 1.1 K/uL (0.7-4.9); Basophils % 0.2 % (0-1.3); Hematocrit 39.6 % (36.0-45.0); Lymphocytes % 27.1 % (15.3-44.8); RBC Red Blood Cell Count 4.61 M/uL (3.86-4.86)
--- NOTE | 2021-03-13 21:55 | RAD REPORT ---
EXAM DESCRIPTION: CT - Chest For Pe Angio - 03/13/2021 9:44 pm CLINICAL HISTORY: Chest pain. SOB COMPARISON: No comparisons TECHNIQUE: CT angiogram of the pulmonary arteries was performed with MIP. All CT scans are performed using dose optimization technique as appropriate and may include automated exposure control or mA/KV adjustment according to patient size. FINDINGS: No evidence of pulmonary thromboembolism. No acute aortic finding demonstrated. Moderate peripherally oriented ground-glass lung opacities are present bilaterally. No significant pericardial or pleural fluid. No concerning bony finding. IMPRESSION: No evidence of pulmonary thromboembolism. Moderate peripherally oriented ground-glass lung opacities are present bilaterally, greatest in the l ower lobes. This pattern is most compatible with COVID-19 infection.
[2021-03-13 21:59] LABS: BUN Blood Urea Nitrogen 10 mg/dL (7-18); Bicarbonate 27 mmol/L (21-32); Glucose Level 102 mg/dL (74-106); Potassium 3.7 mmol/L (3.5-5.1); Sodium Level 137 mmol/L (136-145)
--- NOTE | 2021-03-13 22:06 | ER ---
Nurse's Notes [facility] Name: Jeanne Pascual Age: 31 yrs Sex: Female : 1990 Arrival Date: 03/13/2021 Time: 15:27 Bed Treatment Private MD: Diagnosis: Coronavirus infection, unspecified Presentation: 03/13 15:44 Chief complaint: Patient states: SOB, cough, anxiety, nausea since 03/07. COVID + kg 03/07. Coronavirus screen: Vaccine status: Patient reports being unvaccinated. cough unrelated to allergies, nausea, shortness of breath, Client presents with at least one sign or symptom that may indicate coronavirus-19. Standard/surgical mask placed on the client. Provider contacted for isolation considerations. Client reports previous positive COVID test result. Date of collection: March 07, 2021. Ebola Screen: Patient negative for fever greater than or equal to 101.5 degrees Fahrenheit, and additional compatible Ebola Virus Disease symptoms Patient denies exposure to infectious person. Patient denies travel to an Ebola-affected area in the 21 days before illness onset. Initial Sepsis Screen: Does the patient meet any 2 criteria? No. Patient's initial sepsis screen is negative. Does the patient have a suspected source of infection? No. Patient's initial sepsis screen is negative. Risk Assessment: Do you want to hurt yourself or someone else? Patient reports no desire to harm self or others. Onset of symptoms was March 07, 2021. 15:44 Method Of Arrival: Wheelchair kg 15:44 Acuity: ANGELA 3 kg Triage Assessment: 15:47 General: Appears uncomfortable, Behavior is crying. Pain: Complains of pain in Right kg side, Back, Generalized. Respiratory: Reports shortness of breath at rest on exertion cough that is productive, pain with cough Onset: The symptoms/episode began/occurred gradually, the patient has mild shortness of breath. 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 - Social history:: Smoking status: Patient denies any tobacco usage or history of. Screenin:50 Abuse screen: Denies threats or abuse. Denies injuries from another. Nutritional kg screening: No deficits noted. Tuberculosis screening: No symptoms or risk factors identified. Fall Risk None identified. Assessment: 19:14 Reassessment: attempted to call patient back from lobby, no answer. ms4 19:33 General: Appears in no apparent distress. uncomfortable, Behavior is calm, cooperative. vg1 Pain: Complains of pain in back Pain currently is 10 out of 10 on a pain scale. Pain began about a week ago Noted to be grimacing. Neuro: Level of Consciousness is awake, alert, obeys commands, Oriented to person, place, time, situation. Cardiovascular: Patient's skin is warm and dry. Respiratory: Reports cough that is productive, Airway is patent Respiratory effort is even, unlabored, Respiratory pattern is tachypnea Breath sounds are clear bilaterally. GI: Reports nausea. : No signs and/or symptoms were reported regarding the genitourinary system. EENT: No signs and/or symptoms were reported regarding the EENT system. Derm: Skin is intact, is healthy with good turgor. Musculoskeletal: Circulation, motion, and sensation intact. 20:50 Reassessment: Patient appears in no apparent distress at this time. No changes from vg1 previously documented assessment. Patient and/or family updated on plan of care and expected duration. Pain level reassessed. Patient is alert, oriented x 3, equal unlabored respirations, skin warm/dry/pink. 22:04 Reassessment: Patient appears in no apparent distress at this time. No changes from vg1 previously documented assessment. Patient and/or family updated on plan of care and expected duration. Pain level reassessed. Patient is alert, oriented x 3, equal unlabored respirations, skin warm/dry/pink. Vital Signs: 15:44 BP 125 / 85; Pulse 107; Resp 26; Temp 98.7(O); Pulse Ox 97% on R/A; Weight 81.65 kg kg (R); Height 5 ft. 1 in. (154.94 cm) (R); Pain 10/10; 19:34 BP 124 / 83; Pulse 98; Resp 20; Temp 99.0; Pulse Ox 95% on R/A; vg1 20:50 BP 111 / 79; Pulse 95; Resp 18; Pulse Ox 97% on R/A; vg1 22:04 BP 103 / 65; Pulse 93; Resp 18; Pulse Ox 98% on R/A; vg1 15:44 Body Mass Index 34.01 (81.65 kg, 154.94 cm) kg ED Course: 15:27 Patient arrived in ED. mr 15:47 Triage completed. kg 15:47 Arm band placed on left wrist. kg 15:50 Patient has correct armband on for positive identification. kg 15:50 No provider procedures requiring assistance completed. kg 16:07 XRAY Chest Pa And Lat (2 Views) In Process Unspecified. EDMS 18:51 Mitch Rangel PA is PHCP. [facility] 18:51 Gavin So MD is Attending Physician. [facility] 19:27 Tiana Pascual, SAMSON is Primary Nurse. vg1 20:43 Initial lab(s) drawn, by az, sent to lab. Inserted saline lock: 20 gauge in left vg1 antecubital area, using aseptic technique. Blood collected. 21:44 CT Chest For PE Angio In Process Unspecified. EDMS Administered Medications: No medications were administered Outcome: 22:05 Discharge ordered by . [facility] 22:15 Patient left the ED. ms4 Signatures: Dispatcher [employer] EDMS Mitch Rangel PA PA jmm Rivera, Mary mr Tiana Pascual, RN RN vg1 Digna Lanza RN RN kg Daily Reed RN RN ms4
--- NOTE | 2021-03-13 22:06 | EDPHYS ---
Physician Documentation [facility] Name: Jeanne Pascual Age: 31 yrs Sex: Female : 1990 Arrival Date: 03/13/2021 Time: 15:27 Bed Treatment Private MD: TANYA Physician Gavin So HPI: 03/13 19:58 This 31 yrs old Female presents to ER via Wheelchair with complaints of jmm Covid+, Breathing Difficulty. 19:58 The patient has shortness of breath at rest. jmm 22:01 Onset: The symptoms/episode began/occurred gradually, 5 day(s) ago. The patient's jmm shortness of breath is aggravated by nothing, is alleviated by nothing. Associated signs and symptoms: Pertinent negatives:. 1-year-old female with history of migraines and presents emerged part with complaints of cough, increasingly worsening shortness of breath over the past 5 days. Patient was seen in the ED approximately 2 days ago.. 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 - Social history:: Smoking status: Patient denies any tobacco usage or history of. ROS: 22:01 Constitutional: Positive for body aches, fever. jmm 22:01 Respiratory: Positive for cough. 22:01 All other systems are negative. Exam: 22:01 Head/Face: atraumatic. Eyes: EOMI, no conjunctival erythema appreciated ENT: Moist jmm Mucus Membranes Neck: Trachea midline, Supple Chest/axilla: Normal chest wall appearance and motion. Cardiovascular: Regular rate and rhythm. No edema appreciated Respiratory: Normal respirations, no respiratory distress appreciated Abdomen/GI: Non distended, soft Back: Normal ROM Skin: General appearance color normal MS/ Extremity: Moves all extremities, no obvious deformities appreciated, no edema noted to the lower extremities Neuro: Awake and alert, normal gait Psych: Behavior is normal, Mood is normal, Patient is cooperative and pleasant 22:01 Constitutional: The patient appears alert, awake, anxious. Vital Signs: 15:44 BP 125 / 85; Pulse 107; Resp 26; Temp 98.7(O); Pulse Ox 97% on R/A; Weight 81.65 kg kg (R); Height 5 ft. 1 in. (154.94 cm) (R); Pain 10/10; 19:34 BP 124 / 83; Pulse 98; Resp 20; Temp 99.0; Pulse Ox 95% on R/A; vg1 20:50 BP 111 / 79; Pulse 95; Resp 18; Pulse Ox 97% on R/A; vg1 22:04 BP 103 / 65; Pulse 93; Resp 18; Pulse Ox 98% on R/A; vg1 15:44 Body Mass Index 34.01 (81.65 kg, 154.94 cm) kg MDM: 19:37 Patient medically screened. joel 22:02 Data reviewed: vital signs, nurses notes. Counseling: I had a detailed discussion with shawanda the patient and/or guardian regarding: the historical points, exam findings, and any diagnostic results supporting the discharge/admit diagnosis, lab results, radiology results, the need for outpatient follow up, to return to the emergency department if symptoms worsen or persist or if there are any questions or concerns that arise at home. ED course: Patient is alert nontoxic in appearance in the ED. No signs of respiratory distress. CTA is negative. Patient advised to follow-up PCP and otherwise given strict return precautions. Patient understood agrees plan of care.. 03/13 19:38 Order name: CBC with Diff; Complete Time: 21:25 [facility] 03/13 19:38 Order name: BMP; Complete Time: 22:00 [facility] 03/13 15:53 Order name: XRAY Chest Pa And Lat (2 Views); Complete Time: 17:32 kg 03/13 19:39 Order name: D-Dimer [facility] 03/13 19:39 Order name: D-Dimer; Complete Time: 21:25 EDMS 03/13 21:20 Order name: CT Chest For PE Angio; Complete Time: 21:56 [facility] 03/13 19:38 Order name: Saline Lock; Complete Time: 20:44 [facility] Administered Medications: No medications were administered Disposition: 03/14 08:20 Co-signature as Attending Physician, Gavin So MD I agree with the assessment and [facility] plan of care. Disposition Summary: 03/13/21 22:05 Discharge Ordered Location: Home jm Condition: Stable jm Diagnosis - Coronavirus infection, unspecified [facility] Followup: jmm - With: Private Physician - When: 2 - 3 days - Reason: Recheck today's complaints, Continuance of care, Re-evaluation by your physician Discharge Instructions: - Discharge Summary Sheet jmm - COVID-19 [facility] Forms: - Medication Reconciliation Form [facility] - Thank You Letter [facility] - Antibiotic Education [facility] - Prescription Opioid Use [facility] Prescriptions: - albuterol sulfate 90 mcg/actuation Inhalation HFA aerosol inhaler - inhale 2 puff by INHALATION route every 4-6 hours; 1 Pump; Refills: 0, Product [facility] Selection Permitted Signatures: Dispatcher [employer] Nani Solorzano FNP-C FNP-Gavin Kaur MD MD cha Mickail, Joel, PA PA Digna Leggett, RN RN kg
[2021-03-13 22:29] VITALS: TEMP 99
[2021-03-13 22:35] VITALS: BP 103/65; O2SAT 98
== END 2021-03-13 22:15 | disposition home or self-care (01) ==
LOC: ER 15:25
DX: U07.1 COVID-19 (principal); Z88.1 Allergy status to other antibiotic agents
CPT/HCPCS: 36415; 71046; 71275; 80048; 85025; 85379; 99283; Q9967

== ENCOUNTER 2023-05-12 19:37 | Emergency (ER) | payer SELFPAY ==
--- OUTSIDE RECORDS SUMMARY | 2023-05-12 19:40 | XMS REPORT | Continuity of Care Document ---
:1990 Author Organization [facility] t Address [address] [place] [address] Care Team Providers Name Role Phone Pcp, Patient Does Not Have A Primary Care Physician [id number] [id number] Attending Clinician Unavailable Renee Prather DO Attending Clinician [email or web address] Admitting Clinician Unavailable Problems Condition Condition Condition Status Onset Resolution Last Treating Co mments Source Name Details Category Date Date Treatment Clinician Date Encounter Encounter Disease Active Overview: Univers for for 10-27 Formattin ity of routine routine 00:00: g of this [place] gynecologi gynecologi 00 note Me dical emily emily might be Branch examinatio examinatio different n n from the original. ICD10 Diagnosis Term Quality Assurance Intern Utility Morbid Morbid Disease Active Univers obesity obesity 18 ity of 00:00: [place] 00 Medical Branch Other and Other and Disease Active Uni vers unspecifie unspecifie 18 it y of d ovarian d ovarian 00:[place] cyst cyst 00 [place] Dysplasia Dysplasia Disease Active Overview: Univers of cervix of cervix 18 Formattin i ty of 00:00: g of this [place] 00 note Medical might be Branch different from the original. Medical records. DOS-03/22. Pap smear- NIL. Hx of HSIL 1. LEEP biopsy report 1. PINKY 3. Needs annual pap smears. ICD10 Diagnosis Term Quality Assurance Intern Utility Abdominal Abdominal Disease Active Overview: Univers pain, pain, 4-18 Formattin ity of epigastric epigastric 00:00: g of this [place] 00 note Medical might be Branch different from the original. Medical records [facility] scan [...] for Disease Active Unive rs prophylact prophylact -18 it y of ic ic 00:00: [place] vaccinatio vaccinatio 00 Me dical n with n with Branch combined combined diphtheria diphtheria -tetanus-p -tetanus-p ertussis ertussis (DTP) (DTP) vaccine vaccine Allergies, Adverse Reactions, Alerts Allergy Allergy Status Severity Reaction(s) Onset Inactive Treating Comm ents Source Name Type Date Date Clinician Sulfamet Propensi Active Rash Pt Univer s hoxazole ty to -18 allergic ity of adverse 00:00: to [place] [facility] SULFAMET DRUG Active Rash Univers HOXAZOLE INGREDI -18 ity of 00:00: [place] 00 Medical Branch Social History Social Habit Start Date Stop Date Quantity Comments Source Tobacco use and 2014-06-19 2014-06-19 Never used Universit y of exposure 00:00:00 00:00:00 [facility] Alcohol intake 2014-06-19 2014-06-19 Current drinker Unive rsity of 00:00:00 00:00:00 of alcohol [place] Medical (finding) Branch Alcohol Comment 2012-10-27 2012-10-27 social Universit y of 00:00:00 00:00:00 [facility] Sex [birth year] Universit y of 00:00:00 00:00:00 [facility] Smoking Status Start Date Stop Date Source Never smoker [facility] Medical Branch Medications Ordered Filled Start Stop Current Ordering Indication Dosage Frequency Signature Comments Components Source Medication Medication Date Date Medication? Clinician (SIG) Name Name albuterol Yes [id number] 2{puff} Inhale 2 Univers 90 8-31 Puffs ity of mcg/actuati 00:00: every 4 Lyn[place] as on inhaler 00 (four) Medical hours as Branch needed for Wheezing or Shortness of Breath. benzonatate Yes [id number] 100mg Take 1 Univers 100 mg 8-31 capsule by ity of capsule 00:00: mouth 3 [place] (three) Medical times Branch daily as needed for Cough. bromphenira Yes [id number] 5mL Take 5 mL Univers mine-pseudo 8-31 by mouth 4 it y of ephedrine-D 00:00: (four[place] (BROMFED 00 times Medical DM) 2-30-10 daily as Bran ch mg/5 mL needed for syrup Congestion /Allergies . albuterol Yes [id number] 2{puff} Inhale 2 Univers 90 8-31 Puffs ity of mcg/actuati 00:00: every 4 [place] as on inhaler 00 (four) Medical hours as Branch needed for Wheezing or Shortness of Breath. benzonatate Yes [id number] 100mg Take 1 Univers 100 mg 8-31 capsule by ity of capsule 00:00: mouth 3 (three) Medical times Branch daily as needed for Cough. bromphenira Yes [id number] 5mL Take 5 mL Univers mine-pseudo 8-31 [...] 6 Medical (six) Branch hours as needed. Vital Signs Vital Name Observation Time Observation Value Comments Source Systolic blood 2021-03-11 17:35:00 120 mm[Hg] Univer sity of pressure [facility] Diastolic blood 2021-03-11 17:35:00 83 mm[Hg] Unive rsity of pressure [facility] Heart rate 2021-03-11 17:35:00 115 /min [facility] Body temperature 2021-03-11 17:35:00 [facility].61 [facility] 2021-03-11 17:35:00 26 /min [facility] Body weight 2021-03-11 17:35:00 86.183 kg [facility] BMI 2021-03-11 17:35:00 35.90 kg/m2 [facility] Oxygen saturation in 2021-03-11 17:35:00 94 /min [facility] Arterial blood by [facility] Pulse oximetry [place] Procedures Procedure Date / Time Performed Performing Clinician Sour e NOTICE OF PRIVACY 2021-03-11 17:23:21 Doctor Unassigned, No Univ [facility] Name [facility] Encounters Start End Encounter Admission Attending Care Care Encounter Source Date/Time Date/Time Type Type Clinicians Facility Department ID 2023-05-12 2023-05-12 Outpatient [email or web address] PRIV PRIV [id number] [facility] 00:00:00 00:00:00 diyala_S [id number] Medic al 2021-03-11 2021-03-11 Emergency Crescencio, [facility] [id number] Univers 12:37:00 16:21:00 [id number] [id number] [facility] 084 Branch 2021-03-11 2021-03-11 Emergency X [facility] ERT [id number] Univers 12:23:00 12:23:00 ity [facility] Results This patient has no known results.
--- NOTE | 2023-05-12 20:43 | ER ---
Nurse's Notes [facility] Name: Jeanne Pascual Age: 33 yrs Sex: Female : 1990 Arrival Date: 05/12/2023 Time: 19:37 Bed 10 Private MD: Diagnosis: Nondisplaced fracture of lateral malleolus of left fibula Presentation: 05/12 19:39 Chief complaint: EMS states: patient jumped out of a UHAL and landed wrong, twisting ap3 her left ankle. patient complains of pain to her left ankle and right knee. Coronavirus screen: At this time, the client does not indicate any symptoms associated with coronavirus-19. Ebola Screen: No symptoms or risks identified at this time. Initial Sepsis Screen: Does the patient meet any 2 criteria? No. Patient's initial sepsis screen is negative. Does the patient have a suspected source of infection? No. Patient's initial sepsis screen is negative. Initial Sepsis Screen: Does the patient meet any 2 criteria?. Risk Assessment: Do you want to hurt yourself or someone else? Patient reports no desire to harm self or others. Onset of symptoms was May 12, 2023. 19:39 Method Of Arrival: EMS: [facility] ap3 19:39 Acuity: ANGELA 4 ap3 Triage Assessment: 19:41 General: Appears in no apparent distress. Behavior is calm, cooperative, appropriate ap3 for age. Pain: Complains of pain in left ankle, right knee Pain began suddenly. Neuro: Level of Consciousness is awake, alert, obeys commands, Oriented to person, place, time, situation. Cardiovascular: Patient's skin is warm and dry. Respiratory: Airway is patent Respiratory effort is even, unlabored, Respiratory pattern is regular, symmetrical. Derm:. Musculoskeletal: Swelling present in left lateral ankle. 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 - Social history:: Smoking status: unknown. Screenin:41 [facility] ED Fall Risk Assessment (Adult) History of falling in the last 3 months, ap3 including since admission Yes- single mechanical fall (1 pt) Confusion or Disorientation No (0 pts) Intoxicated or Sedated No (0 pts) Impaired Gait Yes (1 pt) Mobility Assist Device Used No (0 pt) Altered Elimination No (0 pt). Abuse screen: Denies threats or abuse. Nutritional screening: No deficits noted. Tuberculosis screening: No symptoms or risk factors identified. Vital Signs: 19:39 BP 132 / 86; Pulse 80; Resp 17; Pulse Ox 100% ; Weight 90.72 kg; ap3 ED Course: 19:38 Patient arrived in ED. ap3 19:39 Tristan Naqvi MD is Attending Physician. ec2 19:40 Triage completed. ap3 19:42 Arm band placed on right wrist. ap3 19:42 Patient has correct armband on for positive identification. Bed in low position. Call ap3 light in reach. Side rails up X 1. Pulse ox on. NIBP on. 20:14 Ankle Left 3 View XRAY In Process Unspecified. EDMS 20:36 Katlyn Bolivar, SAMSON is Primary Nurse. ap3 20:44 Vinod Davison MD is Referral Physician. ec2 21:12 Orthoglass splint: Posterior short lleg splint applied on left leg. stirrup splint jj7 applied on left leg. 21:22 Provided Education on: discharge instructions. ap3 21:22 No provider procedures requiring assistance completed. Patient did not have IV access ap3 during this emergency room visit. Administered Medications: No medications were administered Medication: 19:43 VIS not applicable for this client. ap3 Outcome: 20:42 Discharge ordered by . ec2 21:22 Discharged to home with crutches, ap3 21:22 Condition: good 21:22 Discharge instructions given to patient, Instructed on discharge instructions, follow up and referral plans. medication usage, crutch walking, Demonstrated understanding of instructions, follow-up care, medications, crutch walking, Prescriptions given X 1, 21:23 Patient left the ED. ap3 Signatures: Dispatcher [employer] EDMS Katlyn Bolivar RN RN ap3 Celina Jordan RN RN jj7 Tristan Naqvi MD MD ec2
--- NOTE | 2023-05-12 20:43 | EDPHYS ---
Physician Documentation [facility] Name: Jeanne Pascual Age: 33 yrs Sex: Female : 1990 Arrival Date: 05/12/2023 Time: 19:37 Bed 10 Private MD: ED Physician Tristan Naqvi HPI: 05/12 19:39 This 33 yrs old Female presents to ER via Unassigned with complaints of ankle ec2 pain . 19:39 Patient states that she was jumping off an elevated surface and subsequently injured ec2 her left ankle. Patient reports significant pain and swelling at the area. Patient reports no fall or injury, denies head pain or neck pain.. 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 - Social history:: Smoking status: unknown. ROS: 19:39 Constitutional: as per hpi ec2 Exam: 19:39 Constitutional: GEN: NAD Head: atraumatic Eyes: EOMI Ears: External ears are ec2 normal. CV: regular rate LUNGS: no respiratory distress ABD: non-distended SKIN: no evidence of rashes MSK: Left ankle with tenderness to palpation over the lateral malleolus, intact distal pulse. NEURO: moves all extremities equally Vital Signs: 19:39 BP 132 / 86; Pulse 80; Resp 17; Pulse Ox 100% ; Weight 90.72 kg; ap3 MDM: 19:39 Patient medically screened. ec2 19:39 Data reviewed: vital signs. ED course: Patient arrives today for evaluation of left ec2 ankle pain. Examination remarkable for ankle findings as noted above. Will obtain a radiograph to evaluate for bony pathology. Currently considering bony contusion, bony fracture, considered vascular injury however with reassuring DP pulse.. 20:38 ED course: Ankle x-ray independently reviewed and interpreted by me, shows distal ec2 fibula fracture, patient with significant pain in this area, will place in a short leg posterior with stirrups. Patient also with some diminished sensation, possibly has a neuro injury with the fracture, will proceed with splinting and have her follow-up with orthopedic surgery.. 05/12 19:39 Order name: Ankle Left 3 View XRAY ec2 Administered Medications: No medications were administered Disposition Summary: 05/12/23 20:42 Discharge Ordered Notes: Location: Home ec2 Condition: Stable ec2 Diagnosis - Nondisplaced fracture of lateral malleolus of left fibula ec2 Followup: ec2 - With: Vinod Davison MD - When: - Reason: Continuance of care Discharge Instructions: - Discharge Summary Sheet ec2 - Ankle Fracture, [id number] ec2 Forms: - Medication Reconciliation Form ec2 - Thank You Letter ec2 - Antibiotic Education ec2 - Prescription Opioid Use ec2 - Patient Portal Instructions ec2 - Leadership Thank You Letter ec2 Prescriptions: - acetaminophen-codeine 300-15 mg Oral tablet - take 1 tablet ORAL route 3 times per day as needed for pain; 15 tablet; ec2 Refills: 0, Product Selection Permitted Signatures: Dispatcher [employer] Katlyn Castillo RN RN ap3 Tristan Naqvi MD MD ec2
--- NOTE | 2023-05-12 21:49 | RAD REPORT ---
EXAM DESCRIPTION: RAD - Ankle Left 3 View - 05/12/2023 8:12 pm CLINICAL HISTORY: DEFORMITY COMPARISON: Ankle Left 3 View dated 01/24/2013 TECHNIQUE: Left ankle, 3 views. FINDINGS: Transversely oriented mildly displaced fracture at the tip of the lateral malleolus. Small calcaneal spur. No dislocation or periosteal reaction. No joint effusion seen. No joint space narrow ing. Mild soft tissue swelling about the ankle. IMPRESSION: Transversely oriented mildly displaced fracture at the tip of the lateral malleolus.
[2023-05-12 21:50] VITALS: BP 132/86; O2SAT 100
== END 2023-05-12 21:23 | disposition home or self-care (01) ==
LOC: ER 19:37
PROC: 2W3RX1Z Immobilization of Left Lower Leg using Splint (ICD-10-PCS; principal; 2023-05-12)
DX: S82.65XA Nondisplaced fracture of lateral malleolus of left fibula, initial encounter for closed fracture (principal); Z88.1 Allergy status to other antibiotic agents
CPT/HCPCS: 99284

== ENCOUNTER 2024-10-31 15:47 | Emergency (ER) | payer SELFPAY ==
--- OUTSIDE RECORDS SUMMARY | 2024-10-31 15:50 | XMS REPORT | Continuity of Care Document ---
Author Name Unknown Address [address] [facility] [address] [place] [address] Organization [facility] Address [address] [facility] [place] [address] Care Team Providers Care Hybrid Technologist Name Role Phone Pcp, Patient Does Not Have A Primary Care Physic sameer [email or web address] Attending Clinician Unavaila Renee Goodman DO Attending Clinician [phone] [email or web address] Admitting Clinician Rox lopez Problems Condition Name Condition Details Condition Category Status Onset Date Resolution Date Last Treatment Date Treating Clinician Comments Source Encounter for routine gynecologi emily examinatio n Encounter for routine gynecologi emily examinatio n Disease Active 10-27 00:00: 00 Overview: Formattin g of this note might be different from the original. ICD10 Diagnosis Term Hrbp Utility [facility] Morbid obesity Morbid obesity Disease Active 10-27 00:00: 00 [facility] Other and unspecifie d ovarian cyst Other and unspecifie d ovarian cyst Disease Active 10-27 00:00: 00 [facility] Dysplasia of cervix Dysplasia of cervix Disease Active 10-27 00:00: 00 Overview: Formattin g of this note might be different from the original. Medical records. DOS-03/22. Pap smear- NIL. Hx of HSIL 1. LEEP biopsy report 1. PINKY 3. Needs annual pap smears. ICD10 Diagnosis Term Hrbp Utility [facility] Abdominal pain, epigastric Abdominal pain, epigastric Disease Active 10-27 00:00: 00 Overview: Formattin g of this note might be different from the original. Medical records received. [facility] DOS- 08/17/[address] scan of [...] of the uterus are not suspiciou s. [facility] Need for prophylact ic vaccinatio n with combined diphtheria -tetanus-p ertussis (DTP) vaccine Need for prophylact ic vaccinatio n with combined diphtheria -tetanus-p ertussis (DTP) vaccine Disease Active 10-27 00:00: 00 [facility] Allergies, Adverse Reactions, Alerts Allergy Name Allergy Type Status Severity Reaction(s) Onset Date Inactive Date Treating Clinician Comments Source Sulfamet hoxazole Propensi ty to adverse reaction s Active Rash 10-27 00:00: 00 Pt allergic to Bactrim [facility] SULFAMET HOXAZOLE DRUG INGREDI Active Rash 10-27 00:00: 00 [facility] Social History Social Habit Start Date Stop Date Quantity Comments Source Tobacco use and exposure 2014-06-19 00:00:00 2014-06-19 00:00:00 Never used [facility] Alcohol intake 2014-06-19 00:00:00 2014-06-19 00:00:00 Current drinker of alcohol (finding) [facility] Alcohol Comment 2012-10-27 00:00:00 2012-10-27 00:00:00 social [facility] Sex Ass[birth year] At 1990 00:00:00 1990 00:00:00 [facility] Smoking Status Start Date Stop Date Source Never smoker [facility] Medications Ordered Medication Name Filled Medication Name Start Date Stop Date Current Medication? Ordering Clinician Indication Dosage Frequency Signature (SIG) Comments Components Source albuterol 90 mcg/actuati on inhaler 03-11 00:00: 00 Yes [id number] 2{puff} Inhale 2 Puffs every 4 (four) hours as needed for Wheezing or Shortness of Breath. [facility] benzonatate 100 mg capsule 03-11 00:00: 00 Yes [id number] 100mg Take 1 capsule by mouth 3 (three) times daily as needed for Cough. [facility] bromphenira mine-pseudo ephedrine-D M (BROMFED DM) 2-30-10 mg/5 mL syrup 03-11 00:00: 00 Yes [id number] 5mL Take 5 mL by mouth 4 (four) times daily as needed for Congestion /Allergies . [facility] ibuprofen (MOTRIN) 600 mg tablet 10-27 14:24: 46 Yes 600mg Take 600 mg by mouth every 6 (six) hours as needed. [facility] Vital Signs Vital Name Observation Time Observation Value Comments S ryannarciso Systolic blood pressure 2021-03-11 17:35:00 120 mm[Hg] [facility] Diastolic blood pressure 2021-03-11 17:35:00 83 mm[Hg] [facility] Heart rate 2021-03-11 17:35:00 115 /min [facility] Body temperature 2021-03-11 17:35:00 37.61 Sofie [facility] Respiratory rate 2021-03-11 17:35:00 26 /min [facility] Body weight 2021-03-11 17:35:00 86.183 kg [facility] BMI 2021-03-11 17:35:00 35.90 kg/m2 [facility] Oxygen saturation in Arterial blood by Pulse oximetry 2021-03-11 17:35:00 94 /min [facility] Procedures Procedure Date / Time Performed Performing Clinicia n Source NOTICE OF PRIVACY PRACTICES 2021-03-11 17:23:21 Doctor Unassigned, [place] [facility] Encounters Start Date/Time End Date/Time Encounter Type Admission Type Attending Clinicians Care Facility Care Department Encounter ID Source 2023-05-12 00:00:00 2023-05-12 00:00:00 Outpatient [email or web address] [facility] [id number] [facility] 2021-03-11 12:37:00 2021-03-11 16:21:00 Emergency [facility] [id number] [facility] 2021-03-11 12:23:00 2021-03-11 12:23:00 Emergency X [facility] ERT [id number] [facility]
--- NOTE | 2024-10-31 16:00 | EDPHYS ---
Physician Documentation [facility] Name: Jeanne Pascual Age: 34 yrs Sex: Female : 1990 Arrival Date: 10/31/2024 Time: 15:47 Bed Waiting Private MD: ED Physician Willi Stiles HPI: 10/31 15:57 This 34 yrs old Female presents to ER via Unassigned with complaints of Insect kb Bite. 15:57 Pt is a 34 year old female who presents for red bump to right buttock that she noticed kb yesterday. States she thought it was an insect bite, but today it got bigger so she came in for evaluation. Denies pain, fever, drainage. 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 - Infectious Disease History:: Denies. - Social history:: Smoking status: Patient denies any tobacco usage or history of. ROS: 15:56 Constitutional: As per HPI kb Exam: 15:56 Constitutional: This is a well developed, well nourished patient who is awake, alert, kb and in no acute distress. Head/Face: Normocephalic, atraumatic. ENT: Moist Mucous membranes Cardiovascular: Regular rate Respiratory: Respirations even and unlabored. No increased work of breathing. Talking in full sentences MS/ Extremity: Pulses equal, no cyanosis. Neurovascular intact. Full, normal range of motion. Neuro: Awake and alert, GCS 15, oriented to person, place, time, and situation. 15:56 Skin: abscess, that is small, of the right gluteus raissa, Vital Signs: 16:00 BP 130 / 84; Pulse 95; Resp 18; Temp 98.6; Pulse Ox 97% on R/A; Weight 93.44 kg; Height cm10 5 ft. 1 in. ; Pain 0/10; 16:00 Body Mass Index 38.92 (93.44 kg, 154.94 cm) cm10 16:00 Pain Scale: Adult cm10 MDM: 15:52 Medical Screening Exam initiated kb 15:58 Differential diagnosis: insect bite, cellulitis, abscess. Data reviewed: vital signs, kb nurses notes. Counseling: I had a detailed discussion with the patient and/or guardian regarding the historical points, exam findings, and any diagnostic results supporting the discharge/admit diagnosis, the need for outpatient follow up, a family practitioner, to return to the emergency department if symptoms worsen or persist or if there are any questions or concerns that arise at home. ED course: No drainage abscess . Administered Medications: 16:07 Drug: Cephalexin PO 500 mg PO once Route: PO; cm10 16:07 Follow up: Response: Medication administered at discharge. cm10 Disposition: 18:03 I was immediately available on-site in the Emergency Department for consultation in the ms3 care of the patient. Disposition Summary: 10/31/24 15:59 Discharge Ordered Notes: Location: Home kb Condition: Stable kb Diagnosis - Cutaneous abscess of buttock kb Followup: kb - With: Emergency Department - When: As needed - Reason: Worsening of condition Followup: kb - With: Private Physician - When: 2 - 3 days - Reason: Recheck today's complaints, Continuance of care, Re-evaluation by your physician Discharge Instructions: - Discharge Summary Sheet kb - Skin Abscess, [id number] kb Forms: - Medication Reconciliation Form kb - Antibiotic Education kb - Prescription Opioid Use kb - Patient Portal Instructions kb - Leadership Thank You Letter kb Prescriptions: - Cephalexin 500 mg Oral Capsule - take 1 capsule ORAL route every 8 hours for 10 days; 30 capsule; Refills: 0, kb Product Selection Permitted Signatures: Nani Hdz, GLADYS AGUILARP-Willi Laura DO DO ms3 Umu Barlow, RN RN cm10
[2024-10-31] MEDS ORDERED: CEPHALEXIN 250 MG CAP ONE (16:04)
--- NOTE | 2024-10-31 16:09 | ER ---
Nurse's Notes [facility] Name: Jeanne Pascual Age: 34 yrs Sex: Female : 1990 Arrival Date: 10/31/2024 Time: 15:47 Bed Waiting [facility] MD: Diagnosis: Cutaneous abscess of buttock Presentation: 10/31 16:00 Chief complaint: Patient states: Insect bite to right buttocks. Pt states that the cm10 redness is increasing today. No fever or chills. Coronavirus screen: Client denies travel out of the [place] in the last 14 days. Ebola Screen: Patient denies travel to an Ebola-affected area in the 21 days before illness onset. Initial Sepsis Screen: Does the patient meet any 2 criteria? HR > 90 bpm. Does the patient have a suspected source of infection? No. Patient's initial sepsis screen is negative. Risk Assessment: Do you want to hurt yourself or someone else? Patient reports no desire to harm self or others. Onset of symptoms was October 31, 2024. 16:00 Method Of Arrival: Ambulatory cm10 16:00 Acuity: ANGELA 4 cm10 Triage Assessment: 16:01 Bite description: bite sustained to right gluteus raissa was sustained 1 day ago. by cm10 an unknown animal, animal information: vaccination(s) is not applicable. General: Appears in no apparent distress. comfortable, Behavior is calm, cooperative. Pain: Denies pain. Neuro: No deficits noted. Level of Consciousness is awake, alert, obeys commands, Oriented to person, place, time, situation, Appropriate for age. Respiratory: No deficits noted. Airway is patent Respiratory effort is even, unlabored, Respiratory pattern is regular, symmetrical. Derm: Abscess located on right gluteus raissa has no drainage, is red. 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 - Infectious Disease History:: Denies. - Social history:: Smoking status: Patient denies any tobacco usage or history of. Screenin:02 [facility] ED Fall Risk Assessment (Adult) History of falling in the last 3 months, cm10 including since admission No falls in past 3 months (0 pts) Confusion or Disorientation No (0 pts) Intoxicated or Sedated No (0 pts) Impaired Gait No (0 pts) Mobility Assist Device Used No (0 pt) Altered Elimination No (0 pt) Score/Fall Risk Level 0 - 2 = Low Risk Oriented to surroundings, Maintained a safe environment, Hourly rounding (assess needs \T\ fall precautionary measures) done. Abuse screen: Denies threats or abuse. Denies injuries from another. Nutritional screening: No deficits noted. Tuberculosis screening: No symptoms or risk factors identified. Vital Signs: 16:00 BP 130 / 84; Pulse 95; Resp 18; Temp 98.6; Pulse Ox 97% on R/A; Weight 93.44 kg; Height cm10 5 ft. 1 in. ; Pain 0/10; 16:00 Body Mass Index 38.92 (93.44 kg, 154.94 cm) cm10 16:00 Pain Scale: Adult cm10 ED Course: 15:51 Patient arrived in ED. al6 15:52 N[facility] Hdz [facility]C [facility] kb 15:52 Willi Stiles DO is Attending Physician. kb 16:01 Triage completed. cm10 16:02 Arm band placed on left wrist. Patient placed in waiting room. cm10 16:03 Patient has correct armband on for positive identification. Provided Education on: cm10 Follow-up instructions. 16:03 No provider procedures requiring assistance completed. Patient did not have IV access cm10 during this emergency room visit. Administered Medications: 16:07 Drug: Cephalexin PO 500 mg PO once Route: PO; cm10 16:07 Follow up: Response: Medication administered at discharge. cm10 Medication: 16:02 VIS not applicable for this client. cm10 Outcome: 15:59 Discharge ordered by . kb 16:08 Discharged to home ambulatory, cm10 16:08 Condition: good 16:08 Discharge instructions given to patient, Instructed on discharge instructions, follow up and referral plans. medication usage, Demonstrated understanding of instructions, follow-up care, medications, Prescriptions given X 1, 16:08 Patient left the ED. cm10 Signatures: Nani Hdz FNP-C FNP-Ckb Martinez, Clarissa, RN RN cm10 Marsha Masters al6
[2024-10-31 16:48] VITALS: BP 130/84; TEMP 98.6; O2SAT 97
== END 2024-10-31 16:08 | disposition home or self-care (01) ==
LOC: ER 15:47
DX: L02.31 Cutaneous abscess of buttock (principal)
CPT/HCPCS: 99283

== ENCOUNTER 2025-02-17 19:40 | Emergency (ER) | payer OTHER ==
[2025-02-17 20:52] LABS: Influenza A Ag Negative; Influenza B Ag Negative; SARS-CoV-2 Antigen Rapid Res Negative (Negative)
--- NOTE | 2025-02-17 20:59 | ER ---
Nurse's Notes [facility] Name: Jeanne Pascual Age: 35 yrs Sex: Female : 1990 Arrival Date: 02/17/2025 Time: 19:40 Bed 9 Private MD: Diagnosis: Acute upper respiratory infection, unspecified Presentation: 02/17 20:00 Chief complaint: Patient states: sore throat, body aches, nasal congestion, cough, n/v me1 and fever that started last night. Coronavirus screen: Vaccine status: Patient reports receiving the 2nd dose of the covid vaccine. Ebola Screen: No symptoms or risks identified at this time. Initial Sepsis Screen: Does the patient meet any 2 criteria? No. Patient's initial sepsis screen is negative. Does the patient have a suspected source of infection? No. Patient's initial sepsis screen is negative. Risk Assessment: Do you want to hurt yourself or someone else? Patient reports no desire to harm self or others. Onset of symptoms was February 16, 2025. 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 - Infectious Disease History:: Denies. - Social history:: Smoking status: Patient denies any tobacco usage or history of. Screenin:17 [facility] ED Fall Risk Assessment (Adult) History of falling in the last 3 months, jb4 including since admission No falls in past 3 months (0 pts) Confusion or Disorientation No (0 pts) Intoxicated or Sedated No (0 pts) Impaired Gait No (0 pts) Mobility Assist Device Used No (0 pt) Altered Elimination No (0 pt) Score/Fall Risk Level 0 - 2 = Low Risk Oriented to surroundings, Maintained a safe environment. Abuse screen: Denies threats or abuse. Nutritional screening: No deficits noted. Tuberculosis screening: No symptoms or risk factors identified. Assessment: 20:17 General: Appears in no apparent distress. comfortable, Behavior is calm, cooperative, jb4 appropriate for age. Pain: Complains of pain in throat, generalized body aches Pain does not radiate. Pain currently is 5 out of 10 on a pain scale. Neuro: Level of Consciousness is awake, alert, obeys commands, Oriented to person, place, time, situation. Cardiovascular: Patient's skin is warm and dry. Respiratory: Reports cough that is persistent Airway is patent Respiratory effort is even, unlabored, Respiratory pattern is regular, symmetrical. Derm: Skin is intact, Skin is pink, warm \T\ dry. Musculoskeletal: Circulation, motion, and sensation intact. Range of motion: intact in all extremities. 21:09 Reassessment: Patient appears in no apparent distress at this time. Patient and/or jb4 family updated on plan of care and expected duration. Pain level reassessed. Patient is alert, oriented x 3, equal unlabored respirations, skin warm/dry/pink. Vital Signs: 20:00 BP 119 / 77; Pulse 87; Resp 17; Temp 98.6; Pulse Ox 99% ; Weight 90.72 kg; Height 5 ft. me1 1 in. ; Pain 5/10; 20:00 Body Mass Index 37.79 (90.72 kg, 154.94 cm) me1 20:00 Pain Scale: Adult me1 ED Course: 19:43 Patient arrived in ED. im 19:43 Willi Stiles DO is Attending Physician. ms3 20:02 Triage completed. me1 20:02 Arm band placed on Patient placed in an exam room. me1 20:17 Shin Acuña, RN is Primary Nurse. jb4 20:17 Patient has correct armband on for positive identification. Bed in low position. Call jb4 light in reach. Side rails up X 1. Provided Education on: plan of care. 20:58 Antonio Coronel DO is Referral Physician. ms3 21:09 No provider procedures requiring assistance completed. Patient did not have IV access jb4 during this emergency room visit. Administered Medications: No medications were administered Medication: 20:17 VIS not applicable for this client. jb4 Outcome: 20:58 Discharge ordered by . ms3 21:09 Discharged to home ambulatory, jb4 21:09 Condition: stable 21:09 Discharge instructions given to patient, Instructed on discharge instructions, follow up and referral plans. no drinking with medication, medication usage, Demonstrated understanding of instructions, follow-up care, medications, Prescriptions given X 2, 21:10 Patient left the ED. jb4 Signatures: Shin Acuña, RN RN jb4 Willi Stiles DO DO ms3 Anita Wong Michelle RN RN me1
--- NOTE | 2025-02-17 20:59 | EDPHYS ---
Physician Documentation [facility] Name: Jeanne Pascual Age: 35 yrs Sex: Female : 1990 Arrival Date: 02/17/2025 Time: 19:40 Bed 9 Private MD: ED Physician Willi Stiles HPI: 02/17 20:54 This 35 yrs old Female presents to ER via Ambulatory with complaints of Flu ms3 Symptoms. 20:54 35-year-old female past medical history of cervical cancer, migraines, ovarian cyst, ms3 ectopic , anxiety presents to the emergency department for flulike symptoms that began last night. Patient states she currently has a coworker with COVID. Patient states last night she began experiencing bodyaches, vomiting and a fever of 101 F. Patient notes her throat also began hurting last night and continues to be painful. Patient states her discomfort is a 5/10. Patient took ibuprofen prior to coming to the emergency department.. 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 - Infectious Disease History:: Denies. - Social history:: Smoking status: Patient denies any tobacco usage or history of. ROS: 20:54 Cardiovascular: Negative for chest pain, and palpitations. ms3 20:54 Skin: Negative for injury, rash, and discoloration, 20:54 Constitutional: Positive for body aches, chills, fever, 20:54 ENT: Positive for sinus congestion, sore throat, 20:54 Abdomen/GI: Positive for nausea and vomiting, Exam: 20:54 Constitutional: This is a well developed, well nourished patient who is awake, alert, ms3 and in no acute distress. Cardiovascular: Regular rate and rhythm with a normal S1 and S2. No gallops, murmurs, or rubs. Normal PMI, no JVD. No pulse deficits. Respiratory: Lungs have equal breath sounds bilaterally, clear to auscultation and percussion. No rales, rhonchi or wheezes noted. No increased work of breathing, no retractions or nasal flaring. Abdomen/GI: Soft, non-tender, with normal bowel sounds. No distension or tympany. No guarding or rebound. No evidence of tenderness throughout. 20:54 ENT: Nose: nasal drainage, that is moderate, and is seen coming from both nares, that is clear, Vital Signs: 20:00 BP 119 / 77; Pulse 87; Resp 17; Temp 98.6; Pulse Ox 99% ; Weight 90.72 kg; Height 5 ft. me1 1 in. ; Pain 5/10; 20:00 Body Mass Index 37.79 (90.72 kg, 154.94 cm) me1 20:00 Pain Scale: Adult me1 MDM: 20:17 Medical Screening Exam initiated ms3 20:59 Differential diagnosis: flu, URI, COVID. Antibiotic administration: Not indicated. Data ms3 reviewed: vital signs, nurses notes, lab test result(s), and as a result, I will discharge patient. Counseling: I had a detailed discussion with the patient and/or guardian regarding the historical points, exam findings, and any diagnostic results supporting the discharge/admit diagnosis, lab results, the need for outpatient follow up, to return to the emergency department if symptoms worsen or persist or if there are any questions or concerns that arise at home. Special discussion: I discussed with the patient/guardian in detail that at this point there is no indication for admission to the hospital. It is understood, however, that if the symptoms persist or worsen the patient needs to return immediately for re-evaluation. ED course: Discussed negative flu and COVID results with patient. Patient to follow-up Dr. Coronel in 2 to 3 days. Patient understands and agrees with plan. All questions were answered. Return precautions discussed include shortness of breath, chest pain, lightheadedness, worsening symptoms, or any other concerns.. 02/17 20:18 Order name: COVID-19 Ag + Flu A+B Ag; Complete Time: 20:53 EDMS Administered Medications: No medications were administered Disposition Summary: 02/17/25 20:58 Discharge Ordered Notes: Location: Home ms3 Condition: Stable ms3 Diagnosis - Acute upper respiratory infection, unspecified ms3 Followup: ms3 - With: Antonio Coronel, DO - When: 2 - 3 days - Reason: Recheck today's complaints Discharge Instructions: - Discharge Summary Sheet ms3 - Upper Respiratory Infection, Adult ms3 Forms: - Medication Reconciliation Form ms3 - Antibiotic Education ms3 - Prescription Opioid Use ms3 - Patient Portal Instructions ms3 - Leadership Thank You Letter ms3 Prescriptions: - Ibuprofen 600 mg Oral Tablet - take 1 tablet ORAL route every 6 hours As needed take with food; 30 tablet; ms3 Refills: 0, Product Selection Permitted - benzonatate 200 mg Oral capsule - take 1 capsule ORAL route 3 times per day as needed; 30 capsule; Refills: 0, ms3 Product Selection Permitted Signatures: Dispatcher [employer] EDWilli Oates DO DO ms3 Kajal Petersen RN RN me1 Corrections: (The following items were deleted from the chart) 20:17 19:44 Miscellaneous Lab Test+R.LAB.BRZ ordered. EDMS EDMS 20:18 19:44 SARS-COV-2 Antigen Rapid+I.LAB.BRZ ordered. EDMS EDMS
[2025-02-17 21:21] VITALS: BP 119/77; TEMP 98.6; O2SAT 99
== END 2025-02-17 21:10 | disposition home or self-care (01) ==
LOC: ER 19:40
DX: J06.9 Acute upper respiratory infection, unspecified (principal); Z11.52 Encounter for screening for COVID-19
CPT/HCPCS: 36415; 87428; 99283